=== PATIENT | female | born 1980 | race Caucasian/White ===

== ENCOUNTER 2019-05-08 20:43 | Emergency (ER) | payer OTHER, SELFPAY ==
--- NOTE | ~2019-05-08 | CT_ITS ---
EXAMINATION: CT abdomen pelvis w con EXAM DATE: 05/09/2019 00:30 INDICATION: Right lower quadrant pain. Symptoms 2 days. Nausea. TECHNIQUE: Spiral CT of the abdomen and pelvis was performed following intravenous injection of 100 m L Omnipaque 350. Axial, coronal and sagittal images were reviewed. The dose-length product (DLP) fo r this examination was 808.69 mGy-cm. The exposure was tailored according to patient size (auto mA e xposure control), and iterative reconstruction (ASIR) was used as additional dose reduction technique . There is no prior study for comparison. FINDINGS: The liver, spleen, adrenal glands and pancreas are unremarkable. Gallbladder is unremarkab le. No biliary obstruction. Portal and splenic veins are patent. Kidneys enhance symmetrically. T here is no hydronephrosis. The uterus and ovaries are unremarkable, no adnexal mass. The bladder i s unremarkable. There is no retroperitoneal or pelvic lymphadenopathy. The appendix is normal. The stomach and small bowel are unremarkable. There is expected amount of c olonic stool. No free intraperitoneal gas. The heart is normal in size. There are no pericardial or pleural effusions. The lung bases are unremarkable. The bones are unremarkable. IMPRESSION: 1. No acute intra-abdominal findings. Reviewed, dictated and finalized at location [facility]. 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
[2019-05-08 20:59] VITALS: BP 164/98; PULSE 108; RESP 21; TEMP 37; O2SAT 100
[2019-05-08 21:15] LABS: Basophils Absolute Auto 0.1 K/mm3 (0.0-0.1); Basophils Percent Auto 0.7 % (0.2-1.2); Eosinophils Absolute Auto 0.4 K/mm3 (0-0.3); Eosinophils Percent Auto 3.5 % (0-4.4); Hematocrit 38.8 % (37.0-47.0); Hemoglobin 12.7 g/dL (12.0-15.0); Immature Granulocyte Absolute 0.02 K/mm3 (0.00-0.031); Immature Granulocyte Percent A 0.2 % (0-0.5); Lymphocytes Absolute Auto 3.45 K/mm3 (0.9-3.2); Lymphocytes Percent Auto 32.6 % (18.3-44.2); Mean Corpuscular HGB Conc 32.7 g/dl (32-36); Mean Corpuscular Hemoglobin 28.2 pg (26-34); Monocytes Absolute Auto 0.6 K/mm3 (0.1-0.6); Monocytes Percent Auto 5.2 % (2.6-8.5); Neutrophils Absolute Auto 6.1 K/mm3 (1.3-6.7); Neutrophils Percent Auto 57.8 % (45.5-73.1); Platelet Count Result 289 k/mm3 (150-375); Red Blood Count 4.51 M/mm3 (4.2-5.4); Red Cell Distribution Width 14.5 % (11.5-14.5); White Blood Count 10.6 K/mm3 (4.5-10.0)
[2019-05-08 21:29] LABS: Alanine Aminotransferase 15 U/L (4-35); Albumin Level 4.1 g/dL (3.5-5.1); Alkaline Phosphatase 80 U/L (38-126); Aspartate Amino Transferase 18 U/L (14-36); Bilirubin,Total 0.2 mg/dL (0.2-1.3); Blood Urea Nitrogen 10 mg/dL (7-17); Calcium 8.9 mg/dL (8.4-10.2); Carbon Dioxide 23 mmol/L (22-30); Chloride 100 mmol/L (98-107); Estimated CRCL calculation 133 ml/min; Estimated Glomerular Filt Rate > 60; Glucose 186 mg/dL (65-105); Lipase 191 U/L (23-300); Potassium 3.8 mmol/L (3.4-5.0); Sodium 135 mmol/L (137-145)
[2019-05-08 22:07] LABS: Add Urine Microscopic? YES; Appearance Urine Clear (Clear); Bacteria Urine Trace /hpf; Bilirubin Urine Negative (Negative); Blood Urine 2+ (Negative); Color Urine Yellow (Yellow); Glucose Urine UA Negative (Negative); Ketones Urine Negative (Negative); Leukocyte Esterase Ur Negative LEU/UL (Negative); Mucus Urine Few /lpf; Nitrate Urine Negative (Negative); Protein Urine Negative (Negative); RBC Urine 0-2 /hpf (0-2); Specific Grav Ur 1.021 (1.001-1.035); Squamous Epithelial Cell Urine Few /hpf (Few); Urobilinogen Urine Negative mg/dL (<2.0); WBC Urine 0-3 /hpf
--- NOTE | 2019-05-08 23:11 | ED.ABDPAIN ---
HPI - Abdominal Pain General Chief Complaint: Abdominal Pain Stated Complaint: ABD PAIN Time Seen by Provider: 05/08/19 23:10 Source: patient and RN notes reviewed Mode of arrival: ambulatory Limitations: no limitations History of Present Illness HPI narrative: A 38 y/o female presents to the ED with constant, worsening, diffuse ABD pain beginning 2 days ago. She states that the pain is most severe on the rt side. She reports associated nausea. She notes that she just started her period 3 dyas ago. She denies any fevers, chills, vomiting, diarrhea, SOB, or CP. MD elicited complaint: abdominal pain Pertinent past history: none Onset (ago): day(s) (2) Pain Consistency: constant and other (worsening) Location: diffuse and other (worse on rt side) Associated symptoms: nausea Related Data Allergies Allergy/AdvReac Type Severity Reaction Status Date / Time No Known Allergies Allergy Verified 05/09/19 00:17 Review of Systems Review of Systems: All systems reviewed & are unremarkable except as noted in HPI and below Constitutional: Constitutional: Denies chills and Denies fever(s) Cardiovascular: Cardiovascular: Denies chest pain Respiratory: Respiratory: Denies dyspnea Gastrointestinal: Gastrointestinal: Reports abdominal pain (diffuse but worse on rt side), Denies diarrhea, Reports nausea and Denies vomiting PMFSH Past Medical History Medical History (Updated 05/09/19 @ 01:18 by Amadeo Hussein DO) Anxiety DM II (diabetes mellitus, type II), controlled GERD (gastroesophageal reflux disease) History of ovarian cyst History of pneumonia induced hypertension Sleep apnea Surgical History Surgical History (Updated 05/08/19 @ 23:15 by Herminio Karimi) History of tonsillectomy Social History Social History (Updated 05/08/19 @ 23:15 by Herminio Karimi) Smoking status: Current every day smoker Second hand tobacco smoke exposure: Yes Gender identity (if verbalized by the patient): Female Comments PCP: Dr. Rayo. Exam Narrative: Exam Narrative: APPEARANCE: No acute distress, nontoxic, resting in bed HEENT: Normocephalic, atraumatic, OMM RESPIRATORY: No respiratory distress, clear to auscultation bilaterally with no rhonchi wheezing or rales CARDIOVASCULAR: RRR s murmur ABDOMINAL: Soft, nondistended, diffusely tender to palpation, no rebound or guarding MUSCULOSKELETAl: Moves all extremities. No clubbing, cyanosis or edema. NEURO: Awake and alert. Following commands, speech normal, no focal deficits SKIN:: Warm, dry. Normal Color PSYCHIATRIC: Normal affect/mood Course Course Emergency Course: Patient states pain began at the same time her menstrual cycle began. Patient states that she has stopped having any vaginal bleeding today. Denies any vaginal discharge Patient states that they are feeling better at this time. . Repeat abdominal exam shows the patient's abdomen to be soft with no surgical abdomen present. Discussed with patient results of workup and diagnosis. Discussed need for follow-up with primary care physician, reasons to return to the emergency department in proper use of medication. Patient understands and agrees to current treatment plan Vital Signs Vital signs: Vital Signs Temperature 98.6 F 05/08/19 20:59 Pulse Rate 108 H 05/08/19 20:59 Respiratory Rate 21 H 05/08/19 20:59 Blood Pressure 164/98 H 05/08/19 20:59 Pulse Oximetry 100 05/08/19 20:59 Temperature 97.1 F L 05/09/19 00:20 Pulse Rate 101 H 05/09/19 00:20 Respiratory Rate 14 05/09/19 00:20 Blood Pressure 151/95 H 05/09/19 00:20 Pulse Oximetry 99 05/09/19 00:20 MDM - Abdominal Pain MDM Narrative Medical decision making narrative: Patient's abdomen is soft without significant pain or signs of surgical abdomen on serial exams. Lab and x-ray evaluations are reviewed and patient is felt to be a reasonable candidate for outpatient management. Patient was instructed as to limitations of x-ray and lab
[2019-05-09 00:20] VITALS: BP 151/95; PULSE 101; RESP 14; TEMP 36.2; O2SAT 99
[2019-05-09] MEDS: LACTATED RINGERS 1,000 ML 999 ML IV CONT (00:20)
[2019-05-09] MEDS: KETOROLAC 30 MG/ML VIAL (*BKC) IV PUSH (00:20)
--- NOTE | 2019-05-09 00:22 | PC.NURSE ---
Patient to radiology.
[2019-05-09 00:50] VITALS: TEMP 36
[2019-05-09 02:04] VITALS: BP 130/84; BP 147/99; PULSE 79; PULSE 86; RESP 16; RESP 18; TEMP 36; O2SAT 97; O2SAT 99
== END 2019-05-09 02:07 | disposition home or self-care (01) ==
PROVIDERS: Emergency Medicine; Emergency Provider Emergency Medicine; PCP Family Medicine
DX: R10.9 Unspecified abdominal pain (principal); E11.9 Type 2 diabetes mellitus without complications; K21.9 Gastro-esophageal reflux disease without esophagitis; G47.30 Sleep apnea, unspecified
CPT/HCPCS: 36415; 74177; 80053; 81001; 81025; 83690; 85025; 96361; 96374; 99284; J1885; J7120; Q9967

== ENCOUNTER 2019-06-03 07:39 | Outpatient (CLI) | payer OTHER, SELFPAY ==
--- NOTE | 2019-06-03 07:43 | ECG_ITS ---
Measurements Intervals [place] Rate: 91 P: 36 MO: 162 QRS: 37 QRSD: 93 T: -4 QT: 344 QTc: 425 Interpretive Statements SINUS RHYTHM MINIMAL Q WAVES- INFERIOR LEADS BORDERLINE ST-T WAVE ABNORMALITY- ANTEROLATERAL LEADS BASELINE ARTIFACT- I, II, AVR, AVL, AVF, V3 BORDERLINE ECG Electronically Signed On 06-03-2019 8:20:47 PROFESSOR [employer] by Alejandro Floyd D.O.
== END 2019-06-03 07:40 | disposition home or self-care (01) ==
LOC: ANHSURGERY 07:43
PROVIDERS: PCP Family Medicine; Visit Provider Obstetrics & Gynecology
DX: Z01.810 Encounter for preprocedural cardiovascular examination (principal); E11.9 Type 2 diabetes mellitus without complications
CPT/HCPCS: 93005

== ENCOUNTER 2019-06-11 00:46 | Day surgery (SDC) | payer OTHER, SELFPAY ==
[2019-06-02 14:22] VITALS: BMI 31.4
[2019-06-11] VITALS (7 sets, daily range): BP systolic 120–135; BP diastolic 65–87; PULSE 75–88; RESP 16–18; TEMP 36.5–36.7; O2SAT 93–98
--- NOTE | 2019-06-11 07:51 | P.HP_ITS ---
H&P: HPI History of Present Illness Chief complaint: Irregular Period, Pelvic Pain Narrative: Edna Ojeda is a 39 year old female with >6 month hx heavy bleed/clots every 2 weeks. Also with RLQ pain intermittently, not related to cycles. US performed and enlarged, globular uterus noted though no specific a natomic abN. Also having pain evaluated by urology, may see surgery as well. Denies specific GI/ complaints. Review of Systems Review of Systems: All systems reviewed & are unremarkable except as noted in HPI and below PMFSH Past Medical History Medical History Anxiety DM II (diabetes mellitus, type II), controlled GERD (gastroesophageal reflux disease) History of ovarian cyst History of pneumonia induced hypertension Sleep apnea Surgical History Surgical History History of tonsillectomy Social History Social History Smoking status: Current every day smoker Second hand tobacco smoke exposure: Yes Gender identity (if verbalized by the patient): Female Meds Home Medications and Allergies Home Medications Medication Instructions Recorded Confirmed Type ergocalciferol (vitamin D2) 50,000 unit PO WEEKLY 06/02/19 06/02/19 History metformin 500 mg PO BID 06/02/19 06/02/19 History Allergies Allergy/AdvReac Type Severity Reaction Status Date / Time No Known Allergies Allergy Verified 06/02/19 14:23 Exam Const: General: no acute distress Resp: Auscultation: clear to auscultation bilaterally Cardio: Rate: regular rate Rhythm: regular rhythm GI: GI Palp: Yes Soft to palpation : External Female Exam: normal external appearance Other: uterus enlarged 10-12 week size, right adnexa non-enlarged, tender Assessment and Plan Assessment and plan (1) Right lower quadrant abdominal pain: Code(s): R10.31 - Right lower quadrant pain Status: Acute Assessment and Plan: laparoscopy (2) Menometrorrhagia: Code(s): N92.1 - Excessive and frequent menstruation with irregular cycle Status: Acute Assessment and Plan: hysteroscope/curettage
[2019-06-11] MEDS: LACTATED RINGERS 1,000 ML 30 ML IV CONT ×2 (10:45→13:02)
[2019-06-11 10:55] LABS: Glucose Point of Care 126 (65-105)
[2019-06-11] MEDS: MIDAZOLAM HCL 2 MG/2 ML VIAL IV PUSH (11:20)
--- NOTE | 2019-06-11 11:31 | P.PNAN_ITS ---
Anes - Initial Pre Proc Eval Procedure: Operation Date: 06/11/19 12:00 Proposed Procedures p Hysteroscopy, Dilation and Curettage, Diagnostic Laparoscopy with Possible Lysis of Adhesions - Frankie Giraldo MD Date/Time: 06/11/19 11:31 Surgeon: Frankie Giraldo MD Pre Op Diagnosis: Irregular Period, Pelvic Pain Patient Data Age: 39 Gender: F Height: 1.63 m Weight: 84 kg Last Vital Signs Temp 36.5 C 06/11/19 10:45 Pulse 85 06/11/19 10:45 Resp 18 06/11/19 10:45 BP 132/87 06/11/19 10:45 Pulse Ox 98 06/11/19 10:45 Allergies Allergy/AdvReac Type Severity Reaction Status Date / Time No Known Allergies Allergy Verified 06/11/19 10:58 Home Medications Medication Instructions Recorded Confirmed Type ergocalciferol (vitamin D2) 50,000 unit PO WEEKLY 06/02/19 06/11/19 History metformin 500 mg PO BID 06/02/19 06/11/19 History Laboratory Tests 06/11/19 10:49 POC Capillary Glucose 126 mg/dl H mg/dl (65-105) Patient hx anesthesia problems: none Family hx anesthesia problems: none [facility] Past Medical History Medical History (Updated 06/11/19 @ 11:30 by Robert Garcia DO) Anxiety DM II (diabetes mellitus, type II), controlled GERD (gastroesophageal reflux disease) History of ovarian cyst History of pneumonia induced hypertension Surgical History Surgical History History of tonsillectomy Social History Social History Smoking status: Current every day smoker Second hand tobacco smoke exposure: Yes Gender identity (if verbalized by the patient): Female Anes - Eval Final PreProcedure Day of Procedure 06/11/19 11:31 Patient weight: obese Heart: regular rate and rhythm Lungs: clear to auscultation and normal air movement Airway: Mallampati scale class III Neurological: alert and oriented Last oral intake: >/= 8 hours ASA classification: III Emergent: no Anesthetic plan: proceed Anesthesia type and monitoring: general ETT and standard monitoring Informed Consent: The patient's anesthetic plan and its attendant risks and benefits were discussed with the patient/family/POA. Questions were solicited and answers provided to the satisfaction of the patient/family/POA.
[2019-06-11] MEDS: KETOROLAC 30 MG/ML VIAL (*BKC) IV PUSH (12:51)
--- NOTE | 2019-06-11 13:15 | P.OPB_ITS ---
Procedure Note - Brief Procedure Note - Brief Date of procedure: 06/11/19 Pre-op diagnosis: Irregular Period, Pelvic Pain Post-op diagnosis: same Procedure performed: hysteroscope with curettage laparoscopy Description of procedure: Patient was prepped and draped in the usual sterile manner for this procedure. Cervix was dilated and the hysteroscope to be placed with evaluation of the endometrium which did reveal thickened tissue but no specific polyps or fibroids. Curettings were obtained without difficulty. Attention was then placed to the abdomen and umbilical incision was made and the trocars placed under direct visualization suprapubic incision also placed under direct visualization. Patient was placed in Trendelenburg position and evaluated throughout the pelvis. Both tubes and ovaries without abnormality uterus itself was more enlarged and globular though no specific fibroids were noted. Appendix was evaluated did not appear to be abnormal. No evidence of endometriosis and/or adhesions. If this point the procedure was considered terminated gas was allowed to escape consistent approximated using 4 0 Monocryl a subcuticular manner. Patient was sent to recovery room in stable condition. Anesthesia: GLMA Surgeon: Frankie Giraldo MD Estimated blood loss (mL): 0 Drains: No Packing: No Pathology: yes (endometrium) Complications: No immediate complications Condition: stable Disposition: PACU Findings: hysteroscope with thickened endometrium laparoscope with enlarged uterus, no evidence of adhe sions/endometriosis...appendix without evidence of abN.
[2019-06-11 13:26] LABS: Glucose Point of Care 151 (65-105)
== END 2019-06-11 14:45 | disposition home or self-care (01) ==
PROVIDERS: PCP Family Medicine; Visit Provider Obstetrics & Gynecology
PROC: 0UDB8ZZ Extraction of Endometrium, Via Natural or Artificial Opening Endoscopic (ICD-10-PCS; CPT 58558; principal; 2019-06-11 12:00)
DX: N92.1 Excessive and frequent menstruation with irregular cycle (principal); R10.2 Pelvic and perineal pain; N85.2 Hypertrophy of uterus; R10.31 Right lower quadrant pain; E11.9 Type 2 diabetes mellitus without complications; K21.9 Gastro-esophageal reflux disease without esophagitis; G47.30 Sleep apnea, unspecified; Z79.84 Long term (current) use of oral hypoglycemic drugs; E66.9 Obesity, unspecified; Z68.31 Body mass index [BMI] 31.0-31.9, adult; F17.210 Nicotine dependence, cigarettes, uncomplicated
CPT/HCPCS: 58558; 49320; 88305; A9270; J0330; J1100; J1885; J2250; J2405; J2704; J2710; J3010; J7030; J7120

== ENCOUNTER → 2020-07-24 08:10 | Outpatient (CLI) | payer OTHER, SELFPAY ==
--- NOTE | ~2020-07-24 | US_ITS ---
US right upper quadrant DATE: 07/24/2020 09:18 INDICATION: Right upper quadrant abdominal pain TECHNIQUE: Real-time imaging and Doppler analysis of liver, pancreas, gallbladder COMPARISON: 05/09/2019 CT abdomen pelvis FINDINGS: No hepatic or pancreatic space-occupying mass lesion is evident. Normal hepatopedal portal venous flow direction. No gallstones or gallbladder wall thickening or pericholecystic abnormal fluid collection. Negative sonographic Ng's sign. The common bile duct measures 3.3 mm, normal. IMPRESSION: Negative examination Reviewed, dictated and finalized at [facility]. Reviewed, dictated and finalized at location [facility]. IMPRESSION: Negative examination
== END ==
PROVIDERS: Visit Provider Physician Assistant
DX: R10.11 Right upper quadrant pain (principal)
CPT/HCPCS: 76705

== ENCOUNTER 2020-07-24 08:38 | Outpatient (CLI) | payer OTHER, SELFPAY ==
--- NOTE | ~2020-07-24 | MM_ITS ---
EXAMINATION: MM screening grant BI w regi HISTORY: Screening mammogram TECHNIQUE: Craniocaudal and mediolateral oblique 3-D tomosynthesis images were obtained and synthetic 2-D images were generated. CAD analysis was submitted and interpreted. COMPARISON: No prior mammogram is available for comparison at this institution. BREAST PARENCHYMAL COMPOSITION: There are scattered areas of fibroglandular density. FINDINGS: There is no evidence of suspicious mass, calcification, or architectural distortion to sugg est malignancy in either breast. There has been no suspicious interval change. IMPRESSION: 1. No mammographic evidence of malignancy. 2. Recommend routine screening mammography in one year. BI-RADS Category 1: Negative Reviewed, dictated and finalized at location [facility].
== END 2020-07-24 08:39 | disposition home or self-care (01) ==
PROVIDERS: Visit Provider Physician Assistant
DX: Z12.31 Encounter for screening mammogram for malignant neoplasm of breast (principal)
CPT/HCPCS: 77063; 77067

== ENCOUNTER 2020-08-06 18:47 | Emergency (ER) | payer OTHER, SELFPAY ==
[2020-08-06 19:08] VITALS: BP 139/87; PULSE 102; RESP 20; TEMP 37.4; O2SAT 99
--- NOTE | 2020-08-06 19:20 | ED.URI ---
HPI - URI/Sore Throat General Chief Complaint: Upper Respiratory Infection Stated Complaint: sore throat Time Seen by Provider: 08/06/20 19:20 Source: patient Mode of arrival: ambulatory Limitations: no limitations History of Present Illness HPI Narrative: Edna Ojeda is a 40-year-old female with diabetes who started with a sore throat that started this morning and her glands were also swollen she woke. Blood sugars been off for the last 3 days, varying from 225 - 290. She has been afebrile but a little hoarse and generally uncomfortable. Patient has actually been symptomatically 24 hours Related Data Home Medications Medication Instructions Recorded Confirmed ergocalciferol (vitamin D2) 50,000 unit PO WEEKLY 06/02/19 06/11/19 dulaglutide [Trulicity] mg SUBCUT 08/06/20 Allergies Allergy/AdvReac Type Severity Reaction Status Date / Time No Known Allergies Allergy Verified 06/11/19 10:58 Review of Systems Review of Systems: Narrative: CONSTITUTIONAL: Denies fever, chills, sweats. EYES: Denies visual changes, redness, discharge. ENT: Denies rhinorrhea, congestion, has sore throat, otalgia. Mild hoarseness, enlarged lymph nodes CARDIOVASCULAR: Denies chest pain, palpitations, edema. RESPIRATORY: Denies dyspnea, wheezing, cough GASTROINTESTINAL: Denies abdominal pain, nausea, vomiting, diarrhea. GENITOURINARY: Denies dysuria, hematuria, abnormal discharge SKIN: Denies rash or itching. NEUROLOGIC: Denies numbness, or focal weakness. PSYCHIATRIC: Denies anxiety or depression. [facility] Past Medical History Medical History Anxiety DM II (diabetes mellitus, type II), controlled GERD (gastroesophageal reflux disease) History of ovarian cyst History of pneumonia induced hypertension Surgical History Surgical History History of tonsillectomy Family History Family History (Updated 08/06/20 @ 19:31 by Tameka Lundy CNP) Other Diabetes mellitus Heart disease Social History Social History (Updated 08/06/20 @ 19:32 by Tameka Lundy CNP) Smoking packs per day: 0.75 Smoking cigarettes per day: 15.0 Smoking status: Current every day smoker Second hand tobacco smoke exposure: Yes Alcohol intake: never Gender identity (if verbalized by the patient): Female Comments At time of signature, I agree with nursing past medical, surgical, social and family history. There is no relevant family history pertinent to the presenting complaint. Exam Narrative: Exam Narrative: GENERAL: This is a well-nourished, well-developed patient, in mild distress. Patient is anxious HEAD: normocephalic, atraumatic. EYES: Sclera clear/white. Vision is grossly intact. EARS: External ears normal, auditory canals erythematous and without drainage, TMs bulging without perforation. Hearing grossly intact. NOSE: External nose normal without nasal discharge, nares without redness, no rhinorrhea. THROAT: Mucous membranes moist, posterior pharynx erythema with enlarged submandibular lymph nodes that are tender to palpate NECK: Neck supple, tender CARDIOVASCULAR: Regular rate and rhythm without murmurs, gallops, or rubs. RESPIRATORY: Clear to auscultation. Breath sounds equal bilaterally. No wheezes, rales, or rhonchi. GASTROINTESTINAL: Abdomen soft, SKIN: warm, intact with no suspicious lesions or rash, good texture and turgor. NEURO: awake, alert, and oriented to person, place and time. There were no obvious focal neurologic abnormalities. Steady gait EXTREMITIES: Normal range of motion. BACK: Nontender without deformity Course Course Emergency Course: Patient is a 40-year-old diabetic who [facility] with complaints of sore throat, swollen lymph node, sugars that are now within normal ranges Tested for Covid rapid test was negative PCR has been sent off; strep rapid neg, sent for ortiz
[2020-08-07 19:15] LABS: SARS-CoV-2 RNA PCR Negative
== END 2020-08-06 19:51 | disposition home or self-care (01) ==
PROVIDERS: Emergency Provider Nurse Practitioner
DX: J02.9 Acute pharyngitis, unspecified (principal); Z20.822 Contact with and (suspected) exposure to COVID-19; F17.210 Nicotine dependence, cigarettes, uncomplicated; E11.9 Type 2 diabetes mellitus without complications; K21.9 Gastro-esophageal reflux disease without esophagitis
CPT/HCPCS: 87081; 87426; 87880; 99213; C9803; G0463; U0003; U0005

== ENCOUNTER 2020-10-26 16:48 | Emergency (ER) | payer OTHER, SELFPAY ==
--- NOTE | 2020-10-26 16:54 | ED.EAR ---
HPI - Ear Problem General Chief complaint: Ear Stated complaint: Headache, Ear pain Source: patient and RN notes reviewed Mode of arrival: ambulatory History of Present Illness HPI Narrative: This is a 40-year-old female who presented to urgent care with complaints of headache, ear pressure, head pressure, swollen glands and a sore throat positional dizziness. According to patient Sunday she developed the symptoms take anything at home to relieve it. Patient did note that she has had a sinus infection in the past. The patient denies SOB, CP, palpitation, extremity numbness, lightheadedness, dizziness, constipation, diarrhea, chills, or fever. Covid test negative MD Complaint: ear pain Location: bilateral Related Data Home Medications Medication Instructions Recorded Confirmed dulaglutide [Trulicity] 1.5 mg SUBCUT WEEKLY 08/06/20 10/26/20 Allergies Allergy/AdvReac Type Severity Reaction Status Date / Time No Known Allergies Allergy Verified 10/26/20 17:01 Review of Systems Review of Systems: Narrative: A 14 organ system Review of Systems was performed and pertinent positives included in the HPI, otherwise remaining ROS is negative. All systems reviewed & are unremarkable except as noted in HPI and below PMFSH Past Medical History Medical History Anxiety DM II (diabetes mellitus, type II), controlled GERD (gastroesophageal reflux disease) History of ovarian cyst History of pneumonia induced hypertension Surgical History Surgical History History of tonsillectomy Family History Family History (Updated 08/06/20 @ 19:31 by Tameka Lundy CNP) Other Diabetes mellitus Heart disease Social History Social History (Updated 08/06/20 @ 19:32 by Tameka Lundy CNP) Smoking packs per day: 0.75 Smoking cigarettes per day: 15.0 Smoking status: Current every day smoker Second hand tobacco smoke exposure: Yes Alcohol intake: never Gender identity (if verbalized by the patient): Female Exam Narrative: Exam Narrative: GENERAL: This is a well-nourished, well-developed patient, in no apparent distress. HEAD: normocephalic, atraumatic. maxillary tenderness EYES: PERRL. Sclera clear/white. Vision is grossly intact. EARS: External ears normal, auditory canals clear and without drainage, TMs with erythematous hearing grossly intact. NOSE: External nose normal with no obvious nasal discharge, nares without redness, no rhinorrhea. THROAT: Mucous membranes moist, posterior pharynx clear. NECK: Neck supple, non-tender without lymphadenopathy, masses or thyromegaly. CARDIOVASCULAR: Regular rate and rhythm without murmurs, gallops, or rubs. RESPIRATORY: Clear to auscultation. Breath sounds equal bilaterally. No wheezes, rales, or rhonchi. GASTROINTESTINAL: Abdomen soft, non-tender, nondistended. Bowel sounds are active. No hepato-splenomegaly, or palpable masses. No guarding. SKIN: warm, intact with no suspicious lesions or rash, good texture and turgor. NEURO: awake, alert, and oriented to person, place and time. There were no obvious focal neurologic abnormalities. Steady gait EXTREMITIES: Normal range of motion. No edema. No calf tenderness. Negative Homans sign bilaterally. BACK: Nontender without deformity or crepitance. No flank tenderness. Course Vital Signs Vital signs: Vital Signs Temperature 97.7 F 10/26/20 17:10 Pulse Rate 100 10/26/20 17:10 Respiratory Rate 16 10/26/20 17:10 Blood Pressure 141/81 H 10/26/20 17:10 Pulse Oximetry 100 10/26/20 17:10 Temperature 97.7 F 10/26/20 17:10 Pulse Rate 100 10/26/20 17:10 Respiratory Rate 16 10/26/20 17:10 Blood Pressure 141/81 H 10/26/20 17:10 Pulse Oximetry 100 10/26/20 17:10 Medical Decision Making Differential Diagnosis Differential Diagnosis: sinusitis, otitis media Vital Signs Vital Signs
[2020-10-26 17:10] VITALS: BP 141/81; PULSE 100; RESP 16; TEMP 36.5; O2SAT 100
== END 2020-10-26 17:53 | disposition home or self-care (01) ==
PROVIDERS: Emergency Provider Nurse Practitioner; PCP Physician Assistant
DX: J01.00 Acute maxillary sinusitis, unspecified (principal); H66.90 Otitis media, unspecified, unspecified ear; Z20.822 Contact with and (suspected) exposure to COVID-19; F17.210 Nicotine dependence, cigarettes, uncomplicated; F41.9 Anxiety disorder, unspecified; E11.9 Type 2 diabetes mellitus without complications; K21.9 Gastro-esophageal reflux disease without esophagitis
CPT/HCPCS: 87426; 99213; C9803; G0463

== ENCOUNTER 2020-12-14 10:12 | Emergency (ER) | payer OTHER, SELFPAY ==
[2020-12-14 10:37] VITALS: BP 117/83; PULSE 93; RESP 16; TEMP 36.6; O2SAT 100
[2020-12-14] MEDS: MECLIZINE HCL 25 MG TABLET PO (11:33)
--- NOTE | 2020-12-14 12:01 | ED.NAVMDI ---
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 Patient states she has a shorter, 1 morning history upon awakening of positional vertigo symptoms are mild, worse with movement or activity. This is associated with nausea without vomiting, and her blood sugars have been in the 110s. No fever, headache, URI?sinusitis, vomiting, hearing changes, lateralizing weakness, speech/visual changes,CP, loss of taste/smell, S OB, FMH M?ni?re's . No - recently completed her menstrual cycle; symptoms are mild to moderate, like she is drunk and spinning . Patient advised go to hospital for higher level testing if not improved Related Data Home Medications Medication Instructions Recorded Confirmed dulaglutide [Trulicity] 1.5 mg SUBCUT WEEKLY 08/06/20 12/14/20 Allergies Allergy/AdvReac Type Severity Reaction Status Date / Time No Known Allergies Allergy Verified 12/14/20 10:44 Review of Systems Review of Systems: General/Constitutional: No weight loss,fever Eyes: N0: Redness,discharge Ears/Nose/Throat: No: Epistaxis,ear discharge Respiratory: Denies: Hemoptysis Gastrointestinal: No Vomiting, Bleeding-rectal Skin: No Lumps, eruption Neurologic: No Focal Weakness,Sz Hematologic: Denies: Petechiae/Purpura Psychiatric: No: Suicida ideationl All Other Systems: Reviewed and Negative [facility] Past Medical History Medical History Anxiety DM II (diabetes mellitus, type II), controlled GERD (gastroesophageal reflux disease) History of ovarian cyst History of pneumonia induced hypertension Surgical History Surgical History History of tonsillectomy Family History Family History (Updated 08/06/20 @ 19:31 by Tameka Lundy CNP) Other Diabetes mellitus Heart disease Social History Social History (Updated 08/06/20 @ 19:32 by Tameka Lundy CNP) Smoking packs per day: 0.75 Smoking cigarettes per day: 15.0 Smoking status: Current every day smoker Second hand tobacco smoke exposure: Yes Alcohol intake: never Gender identity (if verbalized by the patient): Female Comments At time of signature, agree with nursing past medical, surgical, social and family history. There is no relevant family history pertinent to the presenting complaint Exam Narrative: General Appearance: Well appearing, No distress EYE: PERRLA, Conjunctiva clear,, EOMI no nystagmus seen Neurological: A&O x3, CN II-X intact, no pronator drift, normal FTN, HTS Ears: External ear normal Nose: Normal nose Mouth/Throat: Normal appearing, Normal lips, Supple Respiratory: Airway patent, No respiratory distress Cardiovascular: RRR Abdomen: Soft, Non-tender Musculoskeletal: Full ROM, and strength without drift Skin: Warm, Dry Psychiatric: Normal mood, Normal affect Course Vital Signs Vital signs: Vital Signs Temperature 97.9 F 12/14/20 10:37 Pulse Rate 93 12/14/20 10:37 Respiratory Rate 16 12/14/20 10:37 Blood Pressure 117/83 12/14/20 10:37 Pulse Oximetry 100 12/14/20 10:37 Temperature 97.9 F 12/14/20 10:37 Pulse Rate 93 12/14/20 10:37 Respiratory Rate 16 12/14/20 10:37 Blood Pressure 117/83 12/14/20 10:37 Pulse Oximetry 100 12/14/20 10:37 Discharge Plan Discharge Clinical Impression: Positional vertigo Patient Disposition: Home, Self-Care Condition: Stable Instructions: Benign Paroxysmal Positional Vertigo (ED) Additional Instructions: Go to hospital if not improved for further testing [blood for anemia, metabolic; scanning, etc.] Prescriptions: New meclizine 25 mg tablet 12.5 - 25 mg PO TID PRN (Reaso
== END 2020-12-14 11:42 | disposition home or self-care (01) ==
PROVIDERS: Emergency Provider Emergency Medicine; PCP Physician Assistant
DX: R42 Dizziness and giddiness (principal); F17.210 Nicotine dependence, cigarettes, uncomplicated; E11.9 Type 2 diabetes mellitus without complications; K21.9 Gastro-esophageal reflux disease without esophagitis
CPT/HCPCS: 99213; A9270; G0463

== ENCOUNTER 2021-02-04 16:36 | Emergency (ER) | payer OTHER, SELFPAY ==
[2021-02-04] VITALS (11 sets, daily range): BP systolic 130–156; BP diastolic 67–99; PULSE 70–110; RESP 12–22; TEMP 36.7–36.8; O2SAT 96–100
--- NOTE | ~2021-02-04 | XR_ITS ---
EXAMINATION: XR chest 2V 02/04/2021 17:48 INDICATION: Right chest pain PROCEDURE: 2 view chest COMPARISON: Comparison to multiple prior studies sequentially, with oldest reviewed study dated 05/2006. FINDINGS: The lungs are clear. The cardiomediastinal silhouette is within normal limits. There are no pleural effusions. There is no pneumothorax suspected. IMPRESSION: 1: NO ACUTE CARDIOPULMONARY DISEASE. Reviewed, dictated and finalized at location A.
--- NOTE | ~2021-02-04 | CT_ITS ---
EXAMINATION: CT abdomen pelvis wo con DATE: 02/04/2021 20:43 INDICATION: Right flank pain TECHNIQUE: Computed tomography (CT) of the abdomen and pelvis was performed without intravenous contr ast. The dose-length product was 672.77 mGy-cm. Automated exposure control and iterative reconstructi on technique were employed. COMPARISON: CT dated 05/09/2019. FINDINGS: Lung bases are unremarkable. Heart size is normal. No significant pleural or pericardial ef fusion. No significant vascular abnormality. No lymphadenopathy. Nonobstructive bowel gas pattern. No evidence for appendicitis. No free air or free fluid. The liver, spleen, pancreas, adrenal glands an d kidneys are unremarkable. Gallbladder is present. No evidence for hernia. No acute osseous abnormal ity. IMPRESSION: 1. No acute abdominal abnormality. Reviewed, dictated and finalized at location A.
--- NOTE | 2021-02-04 16:47 | ECG_ITS ---
Measurements Intervals [place] Rate: 100 P: 39 DC: 155 QRS: 30 QRSD: 89 T: 0 QT: 335 QTc: 433 Interpretive Statements SINUS TACHYCARDIA MINIMAL Q WAVES- INFERIOR ELADS NONSPECIFIC ST & T-WAVE ABNORMALITY- ANT/INF LEADS BORDERLINE ECG Electronically Signed On 02-04-2021 16:53:26 CDT by Alejandro Floyd D.O.
[2021-02-04 17:07] LABS: Basophils Absolute Auto 0.1 K/mm3 (0.0-0.1); Basophils Percent Auto 0.8 % (0.2-1.2); Eosinophils Absolute Auto 0.3 K/mm3 (0-0.3); Eosinophils Percent Auto 2.9 % (0-4.4); Hematocrit 44.4 % (37.0-47.0); Hemoglobin 14.6 g/dL (12.0-15.0); Immature Granulocyte Absolute 0.03 K/mm3 (0.00-0.031); Immature Granulocyte Percent A 0.3 % (0-0.5); Lymphocytes Absolute Auto 2.74 K/mm3 (0.9-3.2); Mean Corpuscular HGB Conc 32.9 g/dl (32-36); Mean Corpuscular Hemoglobin 28.9 pg (26-34); Mean Corpuscular Volume 87.7 fl (80-100); Mean Platelet Volume 9.8 fl (7.4-10.4); Monocytes Absolute Auto 0.6 K/mm3 (0.1-0.6); Monocytes Percent Auto 6.4 % (2.6-8.5); Neutrophils Absolute Auto 5.4 K/mm3 (1.3-6.7); Neutrophils Percent Auto 59.6 % (45.5-73.1); Platelet Count Result 260 k/mm3 (150-375); Red Blood Count 5.06 M/mm3 (4.2-5.4); White Blood Count 9.1 K/mm3 (4.5-10.0)
[2021-02-04 17:16] LABS: Anion Gap 8 mmol/L (8-16); Blood Urea Nitrogen 12 mg/dL (7-17); Calcium 9.1 mg/dL (8.4-10.2); Carbon Dioxide 29 mmol/L (22-30); Chloride 103 mmol/L (98-107); Estimated Glomerular Filt Rate > 60; Glucose 240 mg/dL (65-110); INR 0.9; Potassium 3.7 mmol/L (3.4-5.0); Prothrombin Time 12.3 Seconds (11.1-14.7); Sodium 140 mmol/L (137-145)
[2021-02-04 17:17] LABS: Partial Thromboplastin Time 29.9 SECONDS (22.3-36.8)
[2021-02-04 17:28] LABS: Troponin I < 0.012 ng/mL (0.000-0.034)
--- NOTE | 2021-02-04 19:54 | ED.GENADULT ---
HPI - General Adult General Chief complaint: Chest Pain Stated complaint: chest pain x 4 days on right side Time Seen by Provider: 02/04/21 19:03 History of Present Illness HPI narrative: Patient is a 40-year-old female who reports chronic history of right upper quadrant pain with multiple evaluations for gallbladder. Reports that pain has changed over the last 4 to 5 days. Is radiating into her back and shoulder on the right side. Has occasional nausea but no vomiting. No diarrhea or constipation. No exertional chest discomfort. No difficulty breathing/cough/congestion/fever. Has not tried any pain medication at home. Related Data Home Medications Medication Instructions Recorded Confirmed dulaglutide [Trulicity] 1.5 mg SUBCUT WEEKLY 08/06/20 12/14/20 Allergies Allergy/AdvReac Type Severity Reaction Status Date / Time No Known Allergies Allergy Verified 02/04/21 19:00 Review of Systems Review of Systems: All systems reviewed & are unremarkable except as noted in HPI and below Constitutional: Constitutional: Denies chills, Denies fever(s) and Denies weakness ENT: Denies nasal congestion and Denies sore throat Cardiovascular: Cardiovascular: Denies chest pain, Denies rapid heart rate and Denies radiating jaw, neck or arm pain Respiratory: Respiratory: Denies cough, Denies dyspnea and Denies wheezing Gastrointestinal: Gastrointestinal: Reports abdominal pain, Denies constipation, Denies heartburn, Denies diarrhea, Reports nausea and Denies vomiting Genitourinary: Genitourinary: Denies hematuria, Denies nocturia, Denies dysuria and Reports flank pain Musculoskeletal: Musculoskeletal: Reports back pain and Denies muscle cramps Neurologic: Denies focal weakness and Denies numbness PMFSH Past Medical History Medical History Anxiety DM II (diabetes mellitus, type II), controlled GERD (gastroesophageal reflux disease) History of ovarian cyst History of pneumonia induced hypertension Surgical History Surgical History History of tonsillectomy Family History Family History (Updated 08/06/20 @ 19:31 by Tameka Lundy CNP) Other Diabetes mellitus Heart disease Social History Social History (Updated 08/06/20 @ 19:32 by Tameka Lundy CNP) Smoking packs per day: 0.75 Smoking cigarettes per day: 15.0 Smoking status: Current every day smoker Second hand tobacco smoke exposure: Yes Alcohol intake: never Gender identity (if verbalized by the patient): Female Exam Narrative: GENERAL: Well-appearing, well-nourished, and in no acute distress. HEAD: Normocephalic, atraumatic. EYES: PERRL and EOMI. CHEST: Clear to auscultation. No respiratory distress. HEART: Regular rate and rhythm. Normal peripheral pulses. ABDOMEN: Soft, nontender, nondistended. Right-sided CVA tenderness when compared to left. EXTREMITIES: Normal range of motion. No edema. SKIN: Warm, dry, no rash. NEURO: Alert and oriented x3. PSYCH: Normal mood and affect. Course Course Emergency Course: Unremarkable evaluation. Patient informed results. Discharge home. She has follow-up with GI scheduled. Vital Signs Vital signs: Vital Signs Temperature 98.3 F 02/04/21 18:08 Pulse Rate 100 02/04/21 18:08 Respiratory Rate 18 02/04/21 18:08 Blood Pressure 143/67 H 02/04/21 18:08 Pulse Oximetry 99 02/04/21 18:08 Temperature 98.0 F 02/04/21 21:00 Pulse Rate 100 02/04/21 21:00 Respiratory Rate 18 02/04/21 21:00 Blood Pressure 156/92 H 02/04/21 21:00 Pulse Oximetry 97 02/04/21 21:00 Medical Decision Making Vital Signs Vital Signs: Vital Signs Temperature 98.3 F 02/04/21 18:08 Pulse Rate 100 02/04/21 18:08 Respiratory Rate 18 02/04/21 18:08 Blood Pressure 143/67 H 02/04/21 18:08 Pulse Oximetry 99 02/04/21 18:08 Temperature 98.0 F
[2021-02-04 19:55] LABS: Alanine Aminotransferase 17 U/L (4-35); Albumin Level 4.1 g/dL (3.5-5.1); Alkaline Phosphatase 85 U/L (38-126); Aspartate Amino Transferase 17 U/L (14-36); Bilirubin,Total 0.1 mg/dL (0.2-1.3); Lipase 228 U/L (23-300)
[2021-02-04 20:01] LABS: Add Urine Microscopic? YES; Appearance Urine Clear (Clear); Bacteria Urine Trace /hpf; Bilirubin Urine Negative (Negative); Blood Urine 2+ (Negative); Color Urine Yellow (Yellow); Glucose Urine UA Negative (Negative); Ketones Urine Negative (Negative); Leukocyte Esterase Ur Negative LEU/UL (Negative); Mucus Urine Rare /lpf; Nitrate Urine Negative (Negative); Protein Urine Negative (Negative); Specific Grav Ur 1.026 (1.001-1.035); Squamous Epithelial Cell Urine Occasional /hpf (Few); WBC Urine 0-3 /hpf
[2021-02-04 20:07] LABS: Troponin I < 0.012 ng/mL (0.000-0.034)
[2021-02-04] MEDS: KETOROLAC 30 MG/ML VIAL (*BKC) IV PUSH (20:26)
== END 2021-02-04 22:01 | disposition home or self-care (01) ==
PROVIDERS: Emergency Medicine; Emergency Provider Emergency Medicine; PCP Physician Assistant
DX: R10.11 Right upper quadrant pain (principal); E11.9 Type 2 diabetes mellitus without complications; K21.9 Gastro-esophageal reflux disease without esophagitis; Z87.01 Personal history of pneumonia (recurrent); F17.210 Nicotine dependence, cigarettes, uncomplicated; R00.0 Tachycardia, unspecified; R94.31 Abnormal electrocardiogram [ECG] [EKG]; Z79.899 Other long term (current) drug therapy
CPT/HCPCS: 36415; 71046; 74176; 80048; 80076; 81001; 81025; 83690; 84484; 85025; 85610; 85730; 93005; 96374; 99284; J1885

== ENCOUNTER 2021-02-22 10:08 | Emergency (ER) | payer OTHER, SELFPAY ==
[2021-02-22 11:00] VITALS: BP 136/90; PULSE 102; RESP 20; TEMP 37.3; O2SAT 98
--- NOTE | 2021-02-22 11:57 | ED.URI ---
HPI - URI/Sore Throat General Chief Complaint: Upper Respiratory Infection Stated Complaint: Sore Throat,Fever,Body Aches,Fatigue Source: patient Mode of arrival: ambulatory Limitations: no limitations History of Present Illness HPI Narrative: Patient is a 40-year-old female who presents with a sore throat, fever and fatigue x1 day. Patient reports a history of mono. Patient reports Covid vaccinated x2. Denies known exposure to Covid. Patient reports taking [id number] medications with limited relief. MD elicited complaint: fever and sore throat Related Data Home Medications Medication Instructions Recorded Confirmed dulaglutide [Trulicity] 1.5 mg SUBCUT WEEKLY 08/06/20 02/22/21 Allergies Allergy/AdvReac Type Severity Reaction Status Date / Time No Known Allergies Allergy Verified 02/22/21 11:15 Review of Systems Review of Systems: CONSTITUTIONAL: Reports fever and chills. EYES: Denies visual changes, redness, or discharge. ENT: Reports sore throat CARDIOVASCULAR: Denies chest pain, palpitations, or edema. RESPIRATORY: Denies cough or dyspnea. GASTROINTESTINAL: Denies abdominal pain, nausea, vomiting, or diarrhea. GENITOURINARY: Denies dysuria or hematuria. SKIN: Denies rash or itching. MUSCULOSKELETAL: Denies back pain, joint pain, or myalgia. NEUROLOGIC: Denies headache, numbness, dizziness, or weakness. PSYCHIATRIC: Denies anxiety or depression. [facility] Past Medical History Medical History Anxiety DM II (diabetes mellitus, type II), controlled GERD (gastroesophageal reflux disease) History of ovarian cyst History of pneumonia induced hypertension Surgical History Surgical History History of tonsillectomy Family History Family History Other Diabetes mellitus Heart disease Social History Social History Smoking packs per day: 0.75 Smoking cigarettes per day: 15.0 Smoking status: Current every day smoker Second hand tobacco smoke exposure: Yes Alcohol intake: never Gender identity (if verbalized by the patient): Female Comments At the time of signature, I have reviewed and agree with nursing past medical, surgical, social, and family history unless otherwise noted. Please see nursing chart for further information. There is no relevant family history pertinent to the presenting complaint. Exam Narrative: GENERAL: Well-appearing, well-nourished, and in no acute distress. HEAD: Normocephalic, atraumatic. EYES: EOMI. No redness or drainage. Conjunctiva are normal. ENT: Mucous membranes pink and moist. Nares clear. No rhinorrhea. TMs normal bilaterally. Throat with moderate erythema and edema. Uvula midline. NECK: AROM. Supple. Positive cervical lymphadenopathy. CHEST: No respiratory distress. HEART: Regular rate and rhythm. EXTREMITIES: Normal range of motion. No edema. SKIN: Warm, dry, no rash. NEURO: No focal deficits. Alert and oriented x3. Gait steady. PSYCH: Normal affect. No signs of depression or anxiety. Course Vital Signs Vital signs: Vital Signs Temperature 37.3 C 02/22/21 11:00 Pulse Rate 102 H 02/22/21 11:00 Respiratory Rate 20 02/22/21 11:00 Blood Pressure 136/90 02/22/21 11:00 Pulse Oximetry 98 02/22/21 11:00 Temperature 37.3 C 02/22/21 11:00 Pulse Rate 102 H 02/22/21 11:00 Respiratory Rate 20 02/22/21 11:00 Blood Pressure 136/90 02/22/21 11:00 Pulse Oximetry 98 02/22/21 11:00 Reviewed-patient is informed that they may have pre-hypertension or hypertension based on a blood pressure reading. I recommend the patient call the primary care provider listed on their discharge instructions or a physician of their choice this week to arrange follow-up for further evaluation of possible pre-hyp
[2021-02-23 18:47] LABS: SARS-CoV-2 RNA PCR Negative
== END 2021-02-22 12:22 | disposition home or self-care (01) ==
PROVIDERS: Emergency Provider Nurse Practitioner; PCP Physician Assistant
DX: J06.9 Acute upper respiratory infection, unspecified (principal); J02.9 Acute pharyngitis, unspecified; Z20.822 Contact with and (suspected) exposure to COVID-19; F17.210 Nicotine dependence, cigarettes, uncomplicated; E11.9 Type 2 diabetes mellitus without complications; K21.9 Gastro-esophageal reflux disease without esophagitis
CPT/HCPCS: 36416; 86308; 87081; 87426; 87804; 87880; 99213; C9803; G0463; U0003; U0005

== ENCOUNTER 2021-04-18 13:07 | Emergency (ER) | payer OTHER, SELFPAY ==
[2021-04-18 13:18] VITALS: BP 150/91; PULSE 107; RESP 18; TEMP 36.6; O2SAT 98
--- NOTE | 2021-04-18 13:29 | ED.GENADULT ---
HPI - General Adult General Chief complaint: Upper Respiratory Infection Stated complaint: Fever,Headache Source: patient Mode of arrival: ambulatory Limitations: no limitations History of Present Illness HPI narrative: 40 y/o female. PMHx DM II. Presents to ED today with acute complaints of MORALES, nasal congestion, and subjective fevers at home for the past 48 hours. She reports to have been exposed to a family friend, as well as a co-worker whom were Covid positive in the past 1 week. No focal weakness, LOC. No nuchal rigidity. No cough, chest pain, dyspnea, palpitations, edema. She denies GI upset. Client reports some relief with OTC remedies. She is without additional acute c/o illness upon PE. Related Data Allergies Allergy/AdvReac Type Severity Reaction Status Date / Time No Known Allergies Allergy Verified 04/18/21 13:17 Review of Systems Review of Systems: CONSTITUTIONAL: fever, chills. No sweats. Positive MORALES. EYES: Denies visual changes, redness, discharge. ENT: Positive rhinorrhea, congestion. No sore throat, otalgia. CARDIOVASCULAR: Denies chest pain, palpitations, edema. RESPIRATORY: Denies dyspnea, wheezing, cough GASTROINTESTINAL: Denies abdominal pain, nausea, vomiting, diarrhea. GENITOURINARY: Denies dysuria, hematuria, abnormal discharge SKIN: Denies rash or itching. MUSCULOSKELETAL: Denies acute back pain, joint pain, or myalgia. NEUROLOGIC: Denies numbness, or focal weakness. PSYCHIATRIC: Denies anxiety or depression. All systems reviewed & are unremarkable except as noted in HPI and below PMFSH Past Medical History Medical History Anxiety DM II (diabetes mellitus, type II), controlled GERD (gastroesophageal reflux disease) History of ovarian cyst History of pneumonia induced hypertension Surgical History Surgical History History of tonsillectomy Family History Family History Other Diabetes mellitus Heart disease Social History Social History Smoking packs per day: 0.75 Smoking cigarettes per day: 15.0 Smoking status: Current every day smoker Second hand tobacco smoke exposure: Yes Alcohol intake: never Gender identity (if verbalized by the patient): Female Exam Narrative: GENERAL: This is a well-nourished, well-developed adult, in no apparent distress. HEAD: normocephalic, atraumatic. EYES: PERRL. Sclera clear/white. EARS: External ears normal, auditory canals clear and without drainage, TMs normal. NOSE: External nose normal. Positive Rhinorrhea, no obstruction, nares patent. THROAT: Mucous membranes moist, posterior pharynx erythematous. No exudates. NECK: Neck supple, non-tender without lymphadenopathy, masses or thyromegaly. No rigidity, full and unrestricted ROM. CARDIOVASCULAR: Regular rate and rhythm without murmurs, gallops, or rubs. RESPIRATORY: Clear to auscultation. Breath sounds equal bilaterally. No wheezes, rales, or rhonchi. GASTROINTESTINAL: Abdomen soft, non-tender, nondistended. Bowel sounds are active. No guarding. SKIN: warm, intact with no suspicious lesions or rash, good texture and turgor. NEURO: Alert, active, and age appropriate. No focal neurologic deficits. EXTREMITIES: Negative. Course Course Level of Care: Express Care Visit Vital Signs Vital signs: Vital Signs Temperature 36.6 C 04/18/21 13:18 Pulse Rate 107 H 04/18/21 13:18 Respiratory Rate 18 04/18/21 13:18 Blood Pressure 150/91 H 04/18/21 13:18 Pulse Oximetry 98 04/18/21 13:18 Temperature 36.6 C 04/18/21 13:18 Pulse Rate 107 H 04/18/21 13:18 Respiratory Rate 18 04/18/21 13:18 Blood Pressure 150/91 H 04/18/21 13:18 Pulse Oximetry 98 04/18/21 13:18 The patient has been informed that they may have p
[2021-04-19 21:02] LABS: SARS-CoV-2 RNA PCR Positive
== END 2021-04-18 13:32 | disposition home or self-care (01) ==
PROVIDERS: Emergency Provider Nurse Practitioner Adult Health; PCP Physician Assistant
DX: B34.9 Viral infection, unspecified (principal); Z20.822 Contact with and (suspected) exposure to COVID-19; F17.210 Nicotine dependence, cigarettes, uncomplicated; E11.9 Type 2 diabetes mellitus without complications; K21.9 Gastro-esophageal reflux disease without esophagitis
CPT/HCPCS: 99213; C9803; G0463; U0003; U0005

== ENCOUNTER 2021-06-28 07:01 | Outpatient (CLI) | payer OTHER, SELFPAY ==
[2021-06-28 07:57] LABS: Basophils Absolute Auto 0.1 K/mm3 (0.0-0.1); Eosinophils Absolute Auto 0.3 K/mm3 (0-0.3); Eosinophils Percent Auto 3.5 % (0-4.4); Hemoglobin 13.7 g/dL (12.0-15.0); Immature Granulocyte Absolute 0.02 K/mm3 (0.00-0.031); Immature Granulocyte Percent A 0.2 % (0-0.5); Lymphocytes Absolute Auto 1.94 K/mm3 (0.9-3.2); Lymphocytes Percent Auto 23.1 % (18.3-44.2); Mean Corpuscular HGB Conc 32.6 g/dl (32-36); Mean Corpuscular Hemoglobin 27.1 pg (26-34); Mean Platelet Volume 9.6 fl (7.4-10.4); Monocytes Absolute Auto 0.5 K/mm3 (0.1-0.6); Monocytes Percent Auto 6.4 % (2.6-8.5); Neutrophils Absolute Auto 5.5 K/mm3 (1.3-6.7); Neutrophils Percent Auto 65.8 % (45.5-73.1); Platelet Count Result 274 k/mm3 (150-375); Red Blood Count 5.06 M/mm3 (4.2-5.4); Red Cell Distribution Width 14.6 % (11.5-14.5); White Blood Count 8.4 K/mm3 (4.5-10.0)
[2021-06-28 08:09] LABS: Alanine Aminotransferase 14 U/L (4-35); Albumin Level 4.1 g/dL (3.5-5.1); Alkaline Phosphatase 68 U/L (38-126); Anion Gap 5 mmol/L (8-16); Aspartate Amino Transferase 20 U/L (14-36); Bilirubin,Total 0.2 mg/dL (0.2-1.3); Blood Urea Nitrogen 15 mg/dL (7-17); Calcium 8.4 mg/dL (8.4-10.2); Carbon Dioxide 26 mmol/L (22-30); Chloride 106 mmol/L (98-107); Cholesterol 202 mg/dL (0-200); Estimated Glomerular Filt Rate > 60; Glucose 141 mg/dL (65-110); HDL Direct 32 mg/dL; Sodium 137 mmol/L (137-145); Triglycerides 102 mg/dL (<150)
[2021-06-28 08:20] LABS: LDL Cholesterol Direct 135 mg/dL
[2021-06-28 08:21] LABS: Creatinine Urine 167.4 mg/dL
[2021-06-28 08:25] LABS: MALB Creatinine Ratio 6.6 mg/g (0-30); Microalbumin Urine Random 11.1 mg/L (0-16.7)
[2021-06-28 08:29] LABS: Hemoglobin A1C 6.8 % (<5.7)
== END 2021-06-28 07:02 | disposition home or self-care (01) ==
PROVIDERS: PCP Physician Assistant; Visit Provider Physician Assistant
DX: E11.9 Type 2 diabetes mellitus without complications (principal); R53.83 Other fatigue
CPT/HCPCS: 36415; 80053; 80061; 82043; 83036; 84443; 85025

== ENCOUNTER 2021-08-10 16:38 | Emergency (ER) | payer OTHER, SELFPAY ==
--- NOTE | 2021-08-10 16:41 | ED.UPPEXIN ---
HPI - Extremity Injury (Upper) General Chief Complaint: Extremity Injury, Upper Stated Complaint: rt hand injury Time Seen by Provider: 08/10/21 16:41 Source: patient Mode of arrival: ambulatory Limitations: no limitations History of Present Illness HPI narrative: Mrs. Ojeda is a 41-year-old female patient presenting to the clinic today with complaints of right hand pain/injury that occurred yesterday morning while walking her dog. She reports that her dog saw the neighbor dog and lunged at the dog and the leash was wrapped around her wrist and this pulled her wrist and arm. Reports that she is having some numbness and tingling in her thumb and second and third digits as well as pain radiating up into her elbow. She reports that the pain is worse with movement of the wrist. Related Data Allergies Allergy/AdvReac Type Severity Reaction Status Date / Time No Known Allergies Allergy Verified 08/10/21 17:00 Review of Systems Review of Systems: Pertinent positives per HPI. Patient denies any fever, chills, rash, headache, visual changes, dizziness, cough, runny nose, sore throat, shortness of breath, chest pain, palpitations, nausea, vomiting, diarrhea, constipation, abdominal pain, or any urinary issues. [facility] Past Medical History Medical History Anxiety DM II (diabetes mellitus, type II), controlled GERD (gastroesophageal reflux disease) History of ovarian cyst History of pneumonia induced hypertension Surgical History Surgical History History of tonsillectomy Family History Family History Other Diabetes mellitus Heart disease Social History Social History Smoking packs per day: 0.75 Smoking cigarettes per day: 15.0 Smoking status: Current every day smoker Second hand tobacco smoke exposure: Yes Alcohol intake: never Gender identity (if verbalized by the patient): Female Comments At the time of my signature, I reviewed and agree with the nursing past medical, surgical, social, and family history. There is no relevant family history pertinent to the patient complaint. Exam Narrative: General: Well-developed, well nourished, in no apparent distress Head: Normocephalic, atraumatic. Cardio: Regular rate and rhythm, s1 and s2 normal, no murmur appreciated. Resp: Clear to auscultation bilaterally, no rhonchi, rales, wheezing or rubs. Musculoskeletal: No deformity, mild swelling over the right radial wrist ,tender to palpation over the right radial wrist, pain worse with flexion and extension as well as grasping, Tinel's sign positive with numbness and tingling to the hand and pain radiating up into the elbow from the wrist, grossly normal range of motion, muscle strength strong and equal, peripheral pulse strong, no edema, no cyanosis, normal gait and station Course Course Emergency Course: Portions of this record may have been created with voice recognition software. Level of Care: Express Care Visit Vital Signs Vital signs: Vital signs reviewed MDM - Extremity Injury (Upper) MDM Narrative Medical decision making narrative: At the time of visit patient was resting comfortably on the exam table. Reports that she has had numbness and tingling to the thumb and second and third digits that comes and goes with pain radiating up into the elbow. She has a positive Tinel's sign to the right radial wrist. I suspect that she has nerve/tendon inflammation due to strain of the right wrist. Recommend wearing a cock-up splint for 1 week and taking some anti-inflammatories. Supportive measures were discussed with patient she voiced understanding of discharge instructions and agreed with the treatment plan. Differential Diagnosis Differential diagnosis: Likely s
[2021-08-10 16:52] VITALS: BP 150/91; PULSE 95; RESP 18; TEMP 36.5; O2SAT 99
== END 2021-08-10 17:05 | disposition home or self-care (01) ==
PROVIDERS: Emergency Provider Nurse Practitioner Family; PCP Physician Assistant
DX: S63.501A Unspecified sprain of right wrist, initial encounter (principal); M77.8 Other enthesopathies, not elsewhere classified; E11.9 Type 2 diabetes mellitus without complications; F17.210 Nicotine dependence, cigarettes, uncomplicated; W22.8XXA Striking against or struck by other objects, initial encounter; Y93.K1 Activity, walking an animal
CPT/HCPCS: 99213; G0463

== ENCOUNTER 2022-06-02 17:28 | Emergency (ER) | payer SELFPAY ==
--- NOTE | 2022-06-02 17:34 | ED.URI ---
HPI - URI/Sore Throat General Chief Complaint: Upper Respiratory Infection Stated Complaint: Congestion,Bilateral Ear Irritation Time Seen by Provider: 06/02/22 17:55 Source: patient and RN notes reviewed Mode of arrival: ambulatory Limitations: no limitations History of Present Illness HPI Narrative: 42-year-old female presents with concern for 3 week history of nasal congestion, pressure, cough, bilateral ear pressure. Reports she has been trying [id number] medications without relief. MD elicited complaint: cough and nasal congestion Related Data Allergies Allergy/AdvReac Type Severity Reaction Status Date / Time No Known Allergies Allergy Verified 06/02/22 17:43 Review of Systems Review of Systems: CONSTITUTIONAL: Reports malaise. Denies chills, sweats, or fever. EYES: Denies visual changes, redness, or discharge. ENT: Reports rhinorrhea, congestion, sinus pain, otalgia CARDIOVASCULAR: Denies chest pain, palpitations, or edema. RESPIRATORY: Reports cough. Denies dyspnea. GASTROINTESTINAL: Denies abdominal pain, nausea, vomiting, diarrhea SKIN: Denies rash or itching. MUSCULOSKELETAL: Denies myalgia. NEUROLOGIC: Denies headache. All systems reviewed & are unremarkable except as noted in HPI and below PMFSH Past Medical History Medical History (Updated 06/02/22 @ 18:06 by Tova Bernal NP) Anemia Anxiety Asthma DM II (diabetes mellitus, type II), controlled Encounter for IUD insertion (05/21/06) Encounter for IUD removal (06/09/13) GERD (gastroesophageal reflux disease) Gestational diabetes History of ovarian cyst History of pneumonia Pneumonia induced hypertension Screening mammogram, encounter for Surgical History Surgical History History of dilation and curettage (06/11/19) hscope d&c/dx lscope--irregular bleeding History of laparoscopy (06/11/19) hscope d&c/dx lscope--irregular bleeding History of tonsillectomy (~1985) Family History Family History (Updated 08/30/21 @ 15:48 by PINEDA Copeland) Daughter Hypothyroidism Other Diabetes mellitus Heart disease Social History Social History Smoking packs per day: 0.75 Smoking cigarettes per day: 15.0 Smoking status: Current every day smoker Second hand tobacco smoke exposure: Yes Alcohol intake: never Gender identity (if verbalized by the patient): Female Comments At time of signature, agree with nursing past medical, surgical, social and family history. There is no relevant family history pertinent to the presenting complaint Exam Narrative: GENERAL: Nontoxic-appearing and in no acute distress. HEAD: Normocephalic EYES: PERRLA, conjunctivae clear ENT: Nares clear, turbinates edematous and erythematous, yellow discharge. Mucous membranes moist. TM pearly [place] with dull light reflex bilaterally; no tragal tenderness. Oropharynx not erythematous without lesions. Tonsils not enlarged and without exudate, no drooling, no hoarseness, no trismus, uvula midline. NECK: Supple. No lymphadenopathy CHEST: Clear to auscultation, breath sounds equal. No wheezing, rhonchi, rales, or stridor. No respiratory distress, speaks in full sentences. Cough and HEART: Regular rate and rhythm. No murmur heard. SKIN: Warm, dry, no rash. NEURO: Alert and oriented x3. PSYCH: Normal mood and affect Course Course Emergency Course: Patient is aware of diagnosis, understands and agrees to treatment plan. Anticipatory guidance given. Patient agrees to follow-up as directed and is aware of reasons to seek care at the emergency department. Portions of this record may have been created with voice recognition software Level of Care: Express Care Visit Vital Signs Vital signs: Reviewed. MDM - URI/Sore Throat MDM Narrative Medical decision making narrative: Differential diagnosis considered: Hernandez virus, strep p
[2022-06-02 18:29] VITALS: BP 152/88; PULSE 95; RESP 20; TEMP 36.6; O2SAT 100
== END 2022-06-02 18:08 | disposition home or self-care (01) ==
PROVIDERS: Emergency Provider Nurse Practitioner; PCP Physician Assistant
DX: J40 Bronchitis, not specified as acute or chronic (principal); E11.9 Type 2 diabetes mellitus without complications; K21.9 Gastro-esophageal reflux disease without esophagitis; F17.210 Nicotine dependence, cigarettes, uncomplicated
CPT/HCPCS: 99213; G0463

== ENCOUNTER 2022-12-09 12:54 | Emergency (ER) | payer SELFPAY ==
[2022-12-09 13:57] VITALS: BP 149/87; PULSE 84; RESP 18; TEMP 36.4; O2SAT 98
--- NOTE | 2022-12-09 14:40 | ED.SKABFB ---
HPI - Skin/Abscess/Foreign Bdy General Chief complaint: Skin/Abscess/Foreign Body Stated complaint: insect bite Time Seen by Provider: 12/09/22 14:32 Source: patient and RN notes reviewed Mode of arrival: ambulatory Limitations: no limitations History of Present Illness HPI narrative: Patient presents today stating she was bit on the nose by an insect 2 days ago while on a walk. Yesterday her nose started swelling and becoming very painful. States the pain has spread across her cheeks and forehead. She has tried ice, heat, Benadryl, and Prid Salve. She currently rates the tip of her nose 01/16. History of diet-controlled diabetes. Related Data Allergies Allergy/AdvReac Type Severity Reaction Status Date / Time No Known Allergies Allergy Verified 12/09/22 14:27 Review of Systems Review of Systems: CONSTITUTIONAL: Denies body aches, fever, chills, or sweats. EYES: Denies visual changes, redness, or discharge. ENT: Denies rhinorrhea, congestion, sore throat, or otalgia. CARDIOVASCULAR: Denies chest pain, palpitations, or edema. RESPIRATORY: Denies cough or dyspnea. GASTROINTESTINAL: Denies abdominal pain, nausea, vomiting, or diarrhea. GENITOURINARY: Denies dysuria or hematuria. SKIN: Denies rash, itching, or wounds.+ insect bite MUSCULOSKELETAL: Denies back pain, joint pain, or myalgia. NEUROLOGIC: Denies headache, numbness, tingling, or weakness. PSYCH: Denies depression or anxiety. [facility] Past Medical History Medical History Anemia Anxiety Asthma DM II (diabetes mellitus, type II), controlled Encounter for IUD insertion (05/21/06) Encounter for IUD removal (06/09/13) GERD (gastroesophageal reflux disease) Gestational diabetes History of ovarian cyst History of pneumonia Pneumonia induced hypertension Screening mammogram, encounter for Surgical History Surgical History History of dilation and curettage (06/11/19) hscope d&c/dx lscope--irregular bleeding History of laparoscopy (06/11/19) hscope d&c/dx lscope--irregular bleeding History of tonsillectomy (~1985) Family History Family History Daughter Hypothyroidism Other Diabetes mellitus Heart disease Social History Social History Smoking packs per day: 0.75 Smoking cigarettes per day: 15.0 Smoking status: Current every day smoker Second hand tobacco smoke exposure: Yes Alcohol intake: never Gender identity (if verbalized by the patient): Female Comments At time of signature, I have reviewed and agree with nursing past medical, surgical, social and family history unless otherwise noted. Please see nursing chart for further information. There is no relevant family history pertinent to the presenting complaint Exam Narrative: GENERAL: Well-appearing, well-nourished, and in no acute distress. HEAD: Normocephalic, atraumatic. EYES: EOMI. No redness or drainage. Conjunctivae normal. ENT: Mucous membranes pink and moist. NECK: Normal AROM. CHEST: No respiratory distress. EXTREMITIES: Normal range of motion. No edema. SKIN: Warm, dry, no rash. Capillary refill normal. Normal skin turgor. Approximately 0.5 cm x 3 mm erythematous area to the inner left nostril. Exterior nostril in tip of nose is mildly erythematous and edematous as well as tender to palpation. Face is without erythema or edema. NEURO: No focal deficits. Alert and oriented x3. Gait steady. PSYCH: Normal affect. No signs of depression or anxiety. Course Course Level of Care: Express Care Visit Vital Signs Vital signs: Vital Signs Temperature 97.5 F L 12/09/22 13:57 Pulse Rate 84 12/09/22 13:57 Respiratory Rate 18 12/09/22 13:57 Blood Pressure 149/87 H 12/09/22 13:57 Pulse Oximetry 98
== END 2022-12-09 14:49 | disposition home or self-care (01) ==
PROVIDERS: Emergency Provider Nurse Practitioner; PCP Physician Assistant
DX: J34.0 Abscess, furuncle and carbuncle of nose (principal); S00.36XA Insect bite (nonvenomous) of nose, initial encounter; W57.XXXA Bitten or stung by nonvenomous insect and other nonvenomous arthropods, initial encounter; F17.210 Nicotine dependence, cigarettes, uncomplicated; J45.909 Unspecified asthma, uncomplicated; E11.9 Type 2 diabetes mellitus without complications; K21.9 Gastro-esophageal reflux disease without esophagitis
CPT/HCPCS: 99213; G0463

== ENCOUNTER 2023-03-21 12:08 | Outpatient (CLI) | payer OTHER, SELFPAY ==
--- NOTE | ~2023-03-21 | MMUS_ITS ---
EXAMINATION: MM diagnostic grant BI w regi, US breast RT limited HISTORY: Palpable right breast abnormality TECHNIQUE: Additional 3-D tomosynthesis images of the breasts were performed and synthetic 2-D images were generated. CAD analysis was submitted and interpreted. High resolution Limited right breast ult rasound was performed. COMPARISON: 07/24/2020 BREAST PARENCHYMAL COMPOSITION: Breast composed of scattered areas of fibroglandular density FINDINGS: MAMMOGRAPHIC FINDINGS: The breasts are stable. No new masses, calcifications or architectural distortion in either breast to suggest malignancy ULTRASOUND: Limited right breast ultrasound: Normal heterogeneous echotexture without focal solid or cystic mass. IMPRESSION: 1. No evidence for malignancy in either breast. 2. Routine yearly screening mammogram and regular clinical breast examination are recommended. BI-RADS Category 1: Negative Reviewed, dictated and finalized at location [facility]. [facility] IMPRESSION: 1. No evidence for malignancy in either breast. 2. Routine yearly screening mammogram and regular clinical breast examination a re recommended. BI-RADS Category 1: Negative
== END 2023-03-21 12:09 | disposition home or self-care (01) ==
LOC: ANHIMG 12:09
PROVIDERS: PCP Physician Assistant; Visit Provider Obstetrics & Gynecology
DX: N63.15 Unspecified lump in the right breast, overlapping quadrants (principal)
CPT/HCPCS: 76642; 77062; 77066; G0279

== ENCOUNTER 2024-01-08 11:26 | Outpatient (CLI) | payer SELFPAY ==
--- NOTE | ~2024-01-08 | US_ITS ---
Pelvic ultrasound. Clinical History: Excessive and frequent menstruation Technique: Realtime transabdominal and transvaginal scanning of the pelvis was performed. Color flow Doppler and Doppler spectral analysis were performed. Findings: The uterus is anteverted. The endometrial stripe has a thickness of 14 mm. Anterior wall i ntramural fibroid measures 2.4 cm in diameter. The right ovary measures 2.0 x 2.5 x 1.9 cm. No significant right ovarian or adnexal mass is seen. The left ovary measures 3.3 x 3.0 x 2.1 cm. No significant left ovarian or adnexal mass is seen. There is no evidence of free fluid in the cul de sac. Impression: 2.4 cm uterine fibroid, as above. Reviewed, dictated and finalized at location . Impression: 2.4 cm uterine fibroid, as above.
== END 2024-01-08 11:27 | disposition home or self-care (01) ==
LOC: GOSHIMG 11:27
PROVIDERS: PCP Obstetrics & Gynecology; Visit Provider Obstetrics & Gynecology
DX: N92.1 Excessive and frequent menstruation with irregular cycle (principal); D25.9 Leiomyoma of uterus, unspecified
CPT/HCPCS: 76830; 76856

== ENCOUNTER 2024-04-30 14:03 | Emergency (ER) | payer OTHER, SELFPAY ==
[2024-04-30 14:14] VITALS: BP 150/84; PULSE 114; RESP 18; TEMP 36.8; O2SAT 98
--- NOTE | 2024-04-30 14:59 | ED_ITS ---
HPI - URI/Sore Throat General Chief Complaint: Upper Respiratory Infection Stated Complaint: fever Time Seen by Provider: 04/30/24 14:59 Source: patient Mode of arrival: ambulatory Limitations: no limitations History of Present Illness HPI Narrative: 43-year-old female presents with complaint of fatigue, body aches, chills, intermittent fever, cough, congestion, headache since yesterday. Denies nausea vomiting diarrhea. All systems reviewed and negative except as noted above. Related Data Home Medications ?Medication ?Instructions ?Recorded ?Confirmed ?Last Taken ?Type dapagliflozin propanediol 10 mg 10 mg PO DAILY 01/07/24 02/05/24 Unknown History tablet (Farxiga) metformin 1,000 mg tablet 1,000 mg PO BID 01/07/24 02/05/24 Unknown History Allergies Allergy/AdvReac Type Severity Reaction Status Date / Time No Known Allergies Allergy Verified 04/30/24 14:46 Review of Systems Review of Systems: CONSTITUTIONAL: Denies fever, chills, or sweats. Reports fatigue. EYES: Denies visual changes, redness, or discharge. ENT: Reports rhinorrhea, congestion. Denies sore throat, or otalgia. CARDIOVASCULAR: Denies chest pain, palpitations, or edema. RESPIRATORY: reports cough. dyspnea. GASTROINTESTINAL: Denies abdominal pain, nausea, vomiting, or diarrhea. GENITOURINARY: Denies dysuria or hematuria. SKIN: Denies rash or itching. MUSCULOSKELETAL: Denies back pain, joint pain . Reports myalgia. NEUROLOGIC: Denies headache, numbness, or weakness. PSYCHIATRIC: Denies anxiety or depression. All other systems reviewed are negative, except as documented in HPI. [facility] Past Medical History Medical History Anemia Anxiety Asthma DM II (diabetes mellitus, type II), controlled Encounter for IUD insertion (05/21/06) Encounter for IUD removal (06/09/13) GERD (gastroesophageal reflux disease) Gestational diabetes History of ovarian cyst History of pneumonia Pneumonia induced hypertension Screening mammogram, encounter for Surgical History Surgical History History of dilation and curettage (06/11/19) hscope d&c/dx lscope--irregular bleeding History of laparoscopy (06/11/19) hscope d&c/dx lscope--irregular bleeding History of tonsillectomy (~1985) Family History Family History Daughter Hypothyroidism Other Diabetes mellitus Heart disease Social History Social History (Updated 02/05/24 @ 08:53 by PINEDA Copeland) Smoking packs per day: 1 Smoking cigarettes per day: 20.0 Smoking status: Current every day smoker Tobacco type: cigarettes Second hand tobacco smoke exposure: Yes Alcohol intake: never Substance use: never Substance use type: does not use Do You Feel Safe in your Home?: Yes Lack of Transportation: No Lack of Food: Never True Current Housing: I Have Housing Concerned About Future Housing: No Difficulty Paying Gas/Electric Bills: No Difficulty Paying for Meds: YES Currently Unemployed: No Education: Trade/Vocational Certificate Difficulty w/ Childcare or Family Care: No Living arrangements: with family Additional living arrangements comments: Occupation/Education: occupation 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 There is no relevant family history pertinent to the presenting complaint. Exam Narrative: GENERAL: This is a well-nourished, well-developed patient, ill-appearing but in no acute distress HEAD: normocephalic, atraumatic. EYES: PERRL. Sclera clear/white. Vision is grossly intact. EARS: External ears normal, auditory canals clear and without drainage, TMs normal without perforation. Hearing grossly intact. NOSE: External nose normal with mild erythema, mild congestion, clear nasal drainage THROAT: Mucous membranes moist, erythematous without swelling or exudates NECK: Neck supple, non-tender without lymphadenopathy, masses or thyromegaly. CARDIOVASCULAR: Regular rate and rhythm without murmurs, gallops, or rubs. RESPIRATORY: Clear to auscultation. Breath sounds equal bilaterally. No wheezes, rales, or rhonchi. SKIN: warm, Dry, intact with no suspicious lesions or rash, good texture and turgor. NEURO: awake, alert, and oriented to person, place and time. There were no obvious focal neurologic abnormalities. EXTREMITIES: No joint tenderness, effusion, or edema noted. Course Course Level of Care: Express Care Visit Vital Signs Vital signs: Vital Signs Temperature 36.8 C 04/30/24 14:14 Pulse Rate 114 H 04/30/24 14:14 Respiratory Rate 18 04/30/24 14:14 Blood Pressure 150/84 H 04/30/24 14:14 Pulse Oximetry 98 04/30/24 14:14 Oxygen Delivery Room Air 04/30/24 14:14 Temperature 36.8 C 04/30/24 14:14 Pulse Rate 114 H 04/30/24 14:14 Respiratory Rate 18 04/30/24 14:14 Blood Pressure 150/84 H 04/30/24 14:14 Pulse Oximetry 98 04/30/24 14:14 Oxygen Delivery Room Air 04/30/24 14:14 reviewed MDM - URI/Sore Throat MDM Narrative Medical decision making narrative: Patient is aware of diagnosis, understands and agrees to treatment plan. Anticipatory guidance given. Patient agrees to follow-up as directed and is aware of reasons to seek care at the emergency department. Portions of this record may have been created with voice recognition software patient positive for influenza A. Well-appearing, nontoxic. Lungs clear to auscultation. Will treat with Tamiflu. Differential Diagnosis Differential diagnosis: Likely upper respiratory infection, sinusitis, viral infection and influenza Discharge Plan Discharge Clinical Impression: Influenza A Patient Disposition: Home, Self-Care Condition: Stable Instructions: Influenza (ED) Additional Instructions: your influenza test was positive today. Influenza is a virus and symptoms may last 10-14 days. Take medications as prescribed. Continue taking ools-omn-goorloh medication treat her symptoms such as DayQuil NyQuil cold and flu. Take ibuprofen every 6-8 hours as needed for pain and fever. Drink at least 64 oz water a day. Follow-up with your primary care physician if symptoms are not improving. Patient Language: Tongan Prescriptions: New oseltamivir [Tamiflu] 75 mg capsule 75 mg PO Q12H 5 Days Qty: 10 0RF benzonatate 200 mg capsule 200 mg PO TID PRN (Reason: cough) Qty: 20 0RF No Action metformin 1,000 mg tablet 1,000 mg PO BID dapagliflozin propanediol [Farxiga] 10 mg tablet 10 mg PO DAILY progesterone micronized [Prometrium] 200 mg capsule 200 mg PO QHS 90 Days Qty: 90 3RF Follow-up/Referrals: Cj,DAMASO Crowder [Primary Care Provider] - Time of Disposition: 15:08
== END 2024-04-30 15:11 | disposition home or self-care (01) ==
PROVIDERS: Emergency Provider Nurse Practitioner Family; PCP Physician Assistant
DX: J10.1 Influenza due to other identified influenza virus with other respiratory manifestations (principal); F17.210 Nicotine dependence, cigarettes, uncomplicated; J45.909 Unspecified asthma, uncomplicated; E11.9 Type 2 diabetes mellitus without complications; Z79.84 Long term (current) use of oral hypoglycemic drugs; K21.9 Gastro-esophageal reflux disease without esophagitis
CPT/HCPCS: 99213; G0463

== ENCOUNTER 2024-06-12 08:21 | Outpatient (CLI) | payer OTHER, SELFPAY ==
--- NOTE | ~2024-06-12 | MM_ITS ---
EXAMINATION: MM screening grant BI w regi HISTORY: Screening mammogram TECHNIQUE: Craniocaudal and mediolateral oblique 3-D tomosynthesis images were obtained and synthetic 2-D images were generated. CAD analysis was submitted and interpreted. COMPARISON: 03/21/2023, 07/24/2020 BREAST PARENCHYMAL COMPOSITION:Not Dense. There are scattered areas of fibroglandular density. FINDINGS: No suspicious mass, calcification, or architectural distortion are identified in either sharmin ast to suggest malignancy. There has been no suspicious interval change. IMPRESSION: No mammographic evidence of malignancy. Recommend routine screening mammography in one year. BI-RADS Category 1: Negative Reviewed, dictated and finalized at location . 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
--- OUTSIDE RECORDS SUMMARY | 2024-06-12 08:31 | XMS_ITS | Encounter Summary ---
Author Organization [facility] Healthcare Address [address] [place] [id number] Care Team Providers Care Extrusion Die Corrector Name Role Phone Lakesha Corona Primary Care Provider [phone] Reason for Visit * Reason Onset Date Comments Med Refill 2024 Encounter Details Date Type Department Care Team (Late st Contact Info) Description 2024 Telephone [facility] Medical Group Family Medicine [address] [place] [address] Lakesha Corona PA [address] [place] [address] Med Refill Social History Tobacco Use Types Packs/Day Years Used Date Smoking Tobacco: Every Day Cigarettes Smokeless Tobacco: Never Alcohol Use Standard Drinks/Week Comments Never 0 (1 standard drink = 0.6 oz pur e alcohol) AUDIT-C Answer Date Recorded Frequency of Alcohol Consumption Not on file 07/10/2023 Q2: How many drinks containi ng alcohol do you have on a typical day when you are drinking? Patient does not drink Frequency of Binge Drinking Not on file 05/2023 PHQ-2 Answer Date Recorded PHQ-2 Total Score (If total score is 3 or more points, staff should administer the PHQ-9) 0 02/20/2024 Personal Safety Answer Date Recorded Have you ever been in or are you currently in a harmful physical or emotional relationship or is someone making you feel afraid or unsafe? 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 Gender Identity Female 08/02/2020 9:09 AM CDT Sexual Orientation Straight 08/02/2020 9: 09 AM CDT documented as of this encounter Ordered Prescriptions Prescription Sig Dispense Quantity Refills Last Filled Start Date End Date dapagliflozin propanediol (FARXIGA) 10 mg tabletIndications: Type 2 diabetes mellitus without complication, without long-term current use of insulin (HCC) Take 1 tablet (10 mg total) by mouth daily 90 tablet 3 05/22/2024 05/22/2025 dapagliflozin propanediol (FARXIGA) 10 mg tabletIndications: Type 2 diabetes mellitus without complication, without long-term current use of insulin (HCC) Take 1 tablet (10 mg total) by mouth daily 90 tablet 3 05/22/2024 05/22/2024 documented in this encounter Miscellaneous Notes * Telephone Encounter - Marina Blackburn MA - 05/26/2024 2:48 PM CST Sent escript for Farxiga. Checked with [facility] today and they did receive the script. LM on patient's VM informing her of this. OLOGY ADJUNCT INSTRUCTOR * Telephone Encounter - Mohini Cardenas - 2024 2:21 PM CST Medication Question/Clarification Medication Name(s)/Dose: Farxiga What is the question or clarification needed? Patient advises that [facility] needs a new prescription for this medication. If needed, Pharmacy(s) medication(s) should be sent to: NA Additional Comments: Please contact patient to advise next steps if unable to prescribe. Patient advises that Marina usually handles these refills. Does message need to be routed? Yes-Action Needed OLOGY ADJUNCT INSTRUCTOR documented in this encounter Plan of Treatment Not on file documented as of this encounter Visit Diagnoses Diagnosis Type 2 diabetes mellitus without complication, without long-term current use of insulin (HCC)- Primary documented in this encounter Discontinued Medications Medication Sig Discontinue Reason Start Date End Da te dapagliflozin propanediol (FARXIGA) 10 mg tablet Take 1 tablet (10 mg total) by mouth daily Reorder 05/22/2024 05/22/2024 dapagliflozin propanediol (FARXIGA) 10 mg tabletIndications:Type 2 diabetes mellitus without complication, without long-term current use of insulin (HCC) Take 1 tablet (10 mg total) by mouth daily Reorder 05/22/2024 05/22/2024 documented as of this encounter Care Teams Extrusion Die Corrector Relationship Specialty Start Date End Date Lakesha Corona PA [address] [place] [address] PCP - General Internal Medicine 09/03/19 documented as of this encounter
--- OUTSIDE RECORDS SUMMARY | 2024-06-12 08:31 | XMS_ITS | Encounter Summary ---
Author Organization [facility] Healthcare Address [address] [place] [address] Care Team Providers Care Commutator V Ring Assembler Name Role Phone Lakesha Corona Primary Care Provider [phone]- [phone] Encounter Details Date Type Department Care Team (Late st Contact Info) Description 06/09/2024 Results Follow-Up [facility] Medical Group Family Medicine [address] [place] [address] Lakesha Corona PA [address] [place] [address] Social History Tobacco Use Types Packs/Day Years [...] points, staff should administer the PHQ-9) 0 05/29/2024 Personal Safety Answer Date Recorded Have you ever been in or are you currently in a harmful physical or emotional relationship or is someone making you feel afraid or unsafe? Denies 07/02/2023 Comments No Sex and Gender Information Value Date Recorded Sex Assigned at Not on file Legal Sex Female 3:47 PM ZINC ETCHER Gender Identity Female 08/02/2020 9:09 AM CDT Sexual Orientation Straight 08/02/2020 9: 09 AM CDT documented as of this encounter Plan of Treatment Not on file documented as of this encounter Visit Diagnoses Not on filedocumented in this encounter Care Teams Commutator V Ring Assembler Relationship Specialty Start Date End Date Lakesha Corona PA [address] [place] [address] PCP - General Internal Medicine 09/03/19 documented as of this encounter
--- OUTSIDE RECORDS SUMMARY | 2024-06-12 08:32 | XMS_ITS | Referral Summary ---
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 Name Role Phone Lakesha Corona Primary Care Provider [phone]- [phone] Encounters Date Type Department Care Team Description 06/09/2024 Results Follow-Up [address] [place] [phone] Lakesha Corona PA 06/09/2024 Telephone [facility] [address] [place] [address] Lakesha Corona PA 06/09/2024 Orders Only [address] [place] [address] Lakesha Corona PA Type 2 diabetes mellitus without complication, without long-term current use of insulin (HCC) (Primary Dx); Tachycardia 06/09/2024 Orders Only [facility] [address] [place] [address] Lakesha Corona PA Type 2 diabetes mellitus without complication, without long-term current use of insulin (HCC) (Primary Dx); Tachycardia; Encounter for Medicare annual wellness exam; Annual physical exam; Hyperlipidemia, unspecified hyperlipidemia type 06/03/2024 Telephone [place] [id number] [place] [address] Lakesha Corona PA 06/02/[address] [place] [phone] Lakesha Corona PA 05/29/2024 8:30 AM HARVEST CONTRACTOR Office Visit [address] [place] [phone] Lakesha Corona PA Foreign body in skin of heel (Primary Dx); BMI 29.0-29.9,adult [address] [place] [phone] Lakesha Corona PA Med Refill 05/01/[address] [place] [phone] Lakesha Corona PA 04/21/[address] [place] [phone] Lakesha Corona PA from Last 3 Months Allergies No known active allergies Medications dapagliflozin propanediol (FARXIGA) 10 mg tabletIndication s:Type 2 diabetes mellitus without complication, without long-term current use of insulin (HCC) Take 1 tablet (10 mg total) by mouth daily 90 tablet 3 5 05/22/19 26 Active metFORMIN (GLUCOPHAGE) 500 mg tabletIndication s:Type 2 diabetes mellitus without complication, without long-term current use of insulin (HCC) Take 2 tablets (1,000 mg total) by mouth 2 (two) times a day with meals 360 tablet 1 5 Active progesterone (PROMETRIUM) 200 mg capsuleIndicatio ns:Hormone imbalance Take 1 capsule (200 mg total) by mouth nightly 90 capsule 2 5 Active dapagliflozin propanediol (FARXIGA) 10 mg tablet Take 1 tablet (10 mg total) by mouth daily 30 tablet 4 05/22/19 25 Discontinu ed(Reorder ) progesterone (PROMETRIUM) 200 mg capsule TAKE 1 CAPSULE BY MOUTH EVERY DAY AT BEDTIME 4 06/03/19 Discontinu ed(Reorder ) fluconazole (DIFLUCAN) 150 mg tabletIndication s:Yeast infection Take one tab now. Repeat in 7 days if symptoms persist. 2 tablet 5 05/29/19 Discontinu ed(Therapy completed) metFORMIN (GLUCOPHAGE) 500 mg tabletIndication s:Type 2 diabetes mellitus without complication, without long-term current use of insulin (HCC) TAKE 2 TABLETS(1000 MG) BY MOUTH TWICE DAILY WITH MEALS 360 tablet 1 5 06/02/19 Discontinu ed(Reorder ) dapagliflozin propanediol (FARXIGA) 10 mg tablet Take 1 tablet (10 mg total) by mouth daily 90 tablet 3 5 05/22/19 Discontinu ed(Reorder ) dapagliflozin propanediol (FARXIGA) 10 mg tabletIndication s:Type 2 diabetes mellitus without complication, without long-term current use of insulin (HCC) Take 1 tablet (10 mg total) by mouth daily 90 tablet 3 5 05/22/19 Discontinu ed(Reorder ) Active Problems Problem Noted Date Diagnosed Date Foreign body in skin of heel 05/29/2024 Assessment & Plan (05/29/2024 9:18 AM HARVEST CONTRACTOR): Patient was able to remove the splinter from the heel last night. Has a picture and it was quite long. No s/s infection Continue to look for s/s and if occur, call for antibiotic. Discussed using mold skin for heel protection as needed. BMI 29.0-29.9,adult 02/20/2024 Assessment & Plan (05/29/2024 8:41 AM HARVEST CONTRACTOR): BMI Follow-up includes: Discussed diet and exercising counseling. Assessment & Plan (02/20/2024 10:23 PM HARVEST CONTRACTOR): Weight/BMI is in healthy range. Continue healthy lifestyle to maintain. Cigarette smoker 12/12/2022 Assessment & Plan (02/20/2024 10:22 PM HARVEST CONTRACTOR): Encouraged smoking cessation. Discussed 3 minutes. Reviewed options for assistance with cessation. Reviewed assisted sequela associated with smoking. Pt declines assistance at this time but may contact the office at anytime for further help as they desire. Assessment & Plan (12/12/2022 7:07 PM CDT): Encouraged smoking cessation. Discussed 3 minutes. Reviewed options for assistance with cessation. Reviewed assisted sequela associated with smoking. Pt declines assistance at this time but may contact the office at anytime for further help as they desire. Type 2 diabetes mellitus without complication Assessment & Plan (02/20/2024 10:23 PM HARVEST CONTRACTOR): Stressed importance of continued A1c control to minimize the assisted effects of diabetes. Bring accuchecks to office when instructed to do so. Check A1c about every 3-6 months. Take medication as prescribed. Get annual eye exam. Encouraged FAUSTINO/Statin if able to tolerate. Encouraged weight control and encouraged diabetic diet and exercise. Patient is much better controlled with an A1c now at 7.6 down from 9.2. Continue metformin 1 g b.i.d. and Farxiga 10 mg. Assessment & Plan (12/01/2023 8:44 PM CDT): Stressed importance of continued A1c control to minimize the terminal operations supervisor effects of diabetes. Bring accuchecks to office when instructed to do so. Check A1c about every 3-6 months. Take medication as prescribed. Get annual eye exam. Encouraged FAUSTINO/Statin if able to tolerate. Encouraged weight control and encouraged diabetic diet and exercise. A1c is not controlled. It has come down from 10.4 in August to now 9.6 but still needs more assistance with management. Is on metformin 1 g b.i.d.. Discussed treatment options. Decided upon Farxiga 10 mg. After reviewing risks benefits alternatives side effects and proper use of the medication choices. Samples provided. Prescription sent to pharmacy. Will see if she qualifies for patient assistance as she is self-pay Assessment & Plan (08/21/2023 5:16 PM CDT): Stressed importance of continued A1c control to minimize the terminal operations supervisor effects of diabetes. Bring accuchecks to office when instructed to do so. Check A1c about every 3-6 months. Take medication as prescribed. Get annual eye exam. Encouraged FAUSTINO/Statin if able to tolerate. Encouraged weight control and encouraged diabetic diet and exercise. Currently on metformin 500 b.i.d.. Needs an A1c to determine next step. Patient has been concerned about the cost of medication so willing to increase to 1 g b.i.d. if needed. She will order her labs from [facility] and forward them to me when they become available Assessment & Plan (07/04/2021 11:41 PM CDT): Stressed importance of continued A1c control to minimize the assisted effects of diabetes. Bring accuchecks to office when instructed to do so. Check A1c about every 3-6 months. Take medication as prescribed. Get annual eye exam. Encouraged FAUSTINO/Statin if able to tolerate. Encouraged weight control and encouraged diabetic diet and exercise. Patient continues to want to managed by diet control only. A1c currently is at 6.8. She has a continues glucose monitor. Encouraged to continue with her plan if the numbers go up will revisit utilizing medication again. At this point she also declines wanting to do a statin or an Faustino as recommended do the diagnosis. Will follow closely and continue to offer with her upcoming visits. Assessment & Plan (04/06/2021 11:21 PM HARVEST CONTRACTOR): Stressed importance of continued A1c control to minimize the assisted effects of diabetes. Bring accuchecks to office when instructed to do so. Check A1c about every 3-6 months. Take medication as prescribed. Get annual eye exam. Encouraged FAUSTINO/Statin if able to tolerate. Encouraged weight control and encouraged diabetic diet and exercise. Discussed with patient gastroparesis. Offered referral to quality assurance tech which she declined. Reviewed that diabetes itself can cause gastroparesis. There is definitely GI symptoms that can result from some of the GI medications including metformin and GLPs. Reviewed the risk of undertreated her untreated diabetes. Also reviewed risks and benefits of insulin use. Discussed SG LT risks benefits alternatives and side effects. She is interested in starting Jardiance 10 mg. Will reassess in 3 months. Assessment & Plan (09/13/2020 8:14 AM CDT): Stressed importance of continued A1c control to minimize the assisted effects of diabetes. Bring accuchecks to office when instructed to do so. Check A1c about every 3-6 months. Take medication as prescribed. Get annual eye exam. Encouraged FAUSTINO/Statin if able to tolerate. Encouraged weight control and encouraged diabetic diet and exercise. Continue Trulicity 1.5 weekly as A1c at goal. She declines Statin and FAUSTINO at this point. Will continue to discuss Assessment & Plan (08/28/2020 9:08 PM CDT): Stressed importance of continued A1c control to minimize the assisted effects of diabetes. Bring accuchecks to office when instructed to do so. Check A1c about every 3-6 months. Take medication as prescribed. Get annual eye exam. Encouraged FAUSTINO/Statin if able to tolerate. Encouraged weight control and encouraged diabetic diet and exercise. reviewed with patient that infections or other stressors will increase her A1c and sugar readings short term. Encouraged her to continue to follow diet and exercise. Will treat the infection and monitor closely and within a few weeks these readings should return back to her normal. If they do not she is to contact the office. She voiced understanding Assessment & Plan (06/06/2020 11:52 PM HARVEST CONTRACTOR): Stressed importance of continued A1c control to minimize the assisted effects of diabetes. Bring accuchecks to office when instructed to do so. Check A1c about every 3-6 months. Take medication as prescribed. Get annual eye exam. Encouraged FAUSTINO/Statin if able to tolerate. Encouraged weight control and encouraged diabetic diet and exercise. Continue Trulicity 1.5 until able to recheck A1c for change. Assessment & Plan (2020 8:58 PM HARVEST CONTRACTOR): Stressed importance of continued A1c control to minimize the assisted effects of diabetes. Bring accuchecks to office when instructed to do so. Check A1c about every 3-6 months. Take medication as prescribed. Get annual eye exam. Encouraged FAUSTINO/Statin if able to tolerate. Encouraged weight control and encouraged diabetic diet and exercise. F.u in a few weeks to check labs as just started Trulicity. Appears to be tolerating well. Assessment & Plan (04/17/2020 8:26 PM HARVEST CONTRACTOR): Stressed importance of continued A1c control to minimize the terminal operations supervisor effects of diabetes. Bring accuchecks to office when instructed to do so. Check A1c about every 3-6 months. Take medication as prescribed. Get annual eye exam. Encouraged FAUSTINO/Statin if able to tolerate. Encouraged weight control and encouraged diabetic diet and exercise. Pt stopped statin. Discussed importance and benefit of a statin in a DM. Will discuss again at next visit to avoid starting multiple meds at the same time. Start Trulicity. Reviewed risks, benefit, alternatives, side effects and proper use. Will increase in a month if able to tolerate. Continue metformin as able. Assessment & Plan (01/14/2020 10:04 AM CDT): Stressed importance of continued A1c control to minimize the terminal operations supervisor effects of diabetes. Bring accuchecks to office when instructed to do so. Check A1c about every 3-6 months. Take medication as prescribed. Get annual eye exam. Encouraged FAUSTINO/Statin if able to tolerate. Encouraged weight control and encouraged diabetic diet and exercise. Not compliant with Metformin. Stressed importance of taking medications daily. Can take TWO tabs together in the AM so he will at least get a full dose daily. If unable to achieve control, discussed GLP q week. Will readdress the statin and FAUSTINO at next visit as starting BB today Assessment & Plan (09/29/2019 9:40 PM CDT): This is a significant, separately identifiable problem that was evaluated and managed on the same day as the wellness exam Pt has been decreasing medication for the last few months while waiting to establish care. Restart metformin 500mg bid. Recheck labs. Stressed importance of continued A1c control to minimize the assisted effects of diabetes. Bring accuchecks to office when instructed to do so. Check A1c about every 3-6 months. Take medication as prescribed. Get annual eye exam. Encouraged FAUSTINO/Statin if able to tolerate. Encouraged weight control and encouraged diabetic diet and exercise. . Start statin. Will start FAUSTINO at next visit to avoid starting multiple meds in the same visit. Vitamin D deficiency 09/29/2019 Assessment & Plan (09/13/2020 8:05 AM CDT): supplement Assessment & Plan (06/06/2020 11:51 PM HARVEST CONTRACTOR): supplement Assessment & Plan (01/14/2020 9:54 AM CDT): supplement Assessment & Plan (09/29/2019 9:37 PM CDT): Supplement. Change to daily as difficult to take weekly. Tachycardia 09/29/2019 Assessment & Plan (04/17/2020 8:28 PM HARVEST CONTRACTOR): Pt didn't try the bystolic due to fears over side effects. Discussed at length. Will get her on the trulicity and then revisit. Assessment & Plan (01/14/2020 9:54 AM CDT): Probably secondary to anxiety. Discussed anxiety treatment and am going to start a beta-reilly to see if we can decrease the heart rate as well as help a little with the anxiety is she is not in favor of considering anti anxiety anti depressant. Start Bystolic 2.5 mg 1 tablet daily reviewed risks benefits alternatives and proper use. Assessment & Plan (09/29/2019 9:44 PM CDT): Decreased thru the exam. No correlating sxs when feels heart racing. Adenomyosis 09/29/2019 Assessment & Plan (04/17/2020 8:25 PM HARVEST CONTRACTOR): Continue per Dr. Levine Assessment & Plan (01/14/2020 10:03 AM CDT): Continue per SALES ADMINISTRATOR Dr. Mejia Assessment & Plan (09/29/2019 9:55 PM CDT): Continue per Dr. Giraldo. Resolved Problems Problem Noted Date Diagnosed Date Resolved Date Wound of right ankle 12/01/2023 024 Assessment & Plan (12/01/2023 8:42 PM CDT): Apply MODESTA the area. If it does not heal she is to call. Encouraged to change shoes or get some type of padding in the area Chronic cough 08/21/2023 02/20/2024 Assessment & Plan (08/21/2023 5:16 PM CDT): Patient with a persistent chronic cough. This does not seem to be respiratory. I suspect this is reflux and coming all the way up to the larynx. Strongly encouraged her to restart the omeprazole 40 mg daily. She may extend beyond the 14 days as recommended on the box. Reviewed reflux behavioral changes that need to happen. If her voice does not improve over the next 2 months will need to make the referral to ENT so that she can be scoped in have a definitive diagnosis. Respiratory infection 07/22/20232023 Assessment & Plan (07/22/2023 5:01 PM CDT): Reassured patient it appears she continues to improve and recommend that we aggressively treat with Robitussin with codeine for the cough but not add any additional medications as she has been on multiple antibiotics and steroid treatments over the last 2-3 weeks. She is to monitor very closely and if symptoms persist or worsen will need to get chest x-ray versus CT of the lungs and follow-up. She is in agreement with the plan Nausea 02/23/2023 08/21/2023 Assessment & Plan (02/23/2023 1:01 AM HARVEST CONTRACTOR): Acute onset nausea this morning. Has not really had any emesis. Family members have had GI bug. Provided Zofran. Monitor. If symptoms worsen she is to follow-up Worried well 02/23/2023 02/20/2024 Assessment & Plan (02/23/2023 1:01 AM HARVEST CONTRACTOR): Her nose looks totally normal today. Advised to monitor and if she starts to see swelling or changes she is to follow up immediately BMI 30.0-30.9,adult 12/12/2022 02/20/20 24 Assessment & Plan (11/20/2023 9:16 AM CDT): Discussed the patient's BMI. The BMI is above average. BMI management plan is completed. BMI Follow-up includes: nutrition counseling, exercise counseling and education provided. Assessment & Plan (08/21/2023 5:17 PM CDT): Discussed the patient's BMI. The BMI is above average. BMI management plan is completed. BMI Follow-up includes: nutrition counseling, exercise counseling and education provided. Assessment & Plan (02/21/2023 2:33 PM HARVEST CONTRACTOR): Discussed the patient's BMI. The BMI is above average. BMI management plan is completed. BMI Follow-up includes: nutrition counseling, exercise counseling and education provided. Assessment & Plan (12/12/2022 3:07 PM CDT): Discussed the patient's BMI. The BMI is above average. BMI management plan is completed. BMI Follow-up includes: nutrition counseling, exercise counseling and education provided. Obesity (BMI 30-39.9) 12/12/20222023 Assessment & Plan (11/20/2023 9:16 AM CDT): Discussed the patient's BMI. The BMI is above average. BMI management plan is completed. BMI Follow-up includes: nutrition counseling, exercise counseling and education provided. Assessment & Plan (08/21/2023 5:17 PM CDT): Discussed the patient's BMI. The BMI is above average. BMI management plan is completed. BMI Follow-up includes: nutrition counseling, exercise counseling and education provided. Assessment & Plan (02/21/2023 2:34 PM HARVEST CONTRACTOR): Discussed the patient's BMI. The BMI is above average. BMI management plan is completed. BMI Follow-up includes: nutrition counseling, exercise counseling and education provided. Assessment & Plan (12/12/2022 3:07 PM CDT): Discussed the patient's BMI. The BMI is above average. BMI management plan is completed. BMI Follow-up includes: nutrition counseling, exercise counseling and education provided. Nose cellulitis 12/12/2022 08/21/2023 Assessment & Plan (12/12/2022 7:07 PM CDT): Patient has cellulitis of the nose. The tip of it on the outside is red there is also a crusted lesion in the right nares. It is definitely improved with Keflex and steroid. She agrees the steroid is what made the biggest difference. She feels as though the redness is trying to come back and the discomfort is trying to come back. Will go ahead and have her stop the Keflex transition to Bactroban and Bactrim DS for MRSA coverage. She is to continue When finishing my note, I noticed that the Rx had been written for Bactrim DS take 2 tabs bid. I called and clarified with patient that she only needs 1 tab bid x 10days. She voiced understanding. Acute non-recurrent pansinusitis 01/05/2022 08/21/2023 Assessment & Plan (01/05/2022 1:42 PM CDT): Start antibiotic, antihistamine (Claritin OR Zyrtec), Mucinex 12hour and Steroid nasal spray (Flonase). Push fluids. Rest. Supportive care. If sxs worsen or don\'t improve, pt is to followup in the office. BMI 29.0-29.9,adult 07/04/2021 12/13/19 23 Assessment & Plan (07/04/2021 4:15 PM CDT): Weight/BMI is in healthy range. Continue healthy lifestyle to maintain. Annual physical exam 07/04/2021 024 Assessment & Plan (07/04/2021 11:42 PM CDT): Encouraged healthy lifestyle, good nutrition and exercise. Encouraged Calcium and Vitamin D and weight bearing exercise for bone health. Reviewed immunizations Reviewed age appropirate screenings. Breast cancer screening by mammogram 07/04/2021 08/21/2023 Assessment & Plan (07/04/2021 11:42 PM CDT): Mammogram order provided Obesity (BMI 30-39.9) 09/13/20202021 Assessment & Plan (09/13/2020 7:58 AM CDT): Obesity is improved. Discussed the patient's BMI. The BMI is above average. BMI management plan is completed. BMI Follow-up includes: nutrition counseling, exercise counseling and education provided. BMI 31.0-31.9,adult 09/13/2020 07/05/19 Assessment & Plan (09/13/2020 8:14 AM CDT): Obesity is uimproved. Discussed the patient's BMI. The BMI is above average. BMI management plan is completed. BMI Follow-up includes: nutrition counseling, exercise counseling and education provided. Abdominal pain 09/13/2020 02/20/2024 Assessment & Plan (09/13/2020 7:57 AM CDT): Discussed rescheduling HIDA vs referral to Dr. Reed. She prefers to see GI. Will start PPI to see if helps with her sxs. DM well control so less likely a gastroparesis. Gastroesophageal reflux dise ase without esophagitis 09/13/2020 02/20/2024 Assessment & Plan (08/21/2023 5:16 PM CDT): Patient with a persistent chronic cough. This does not seem to be respiratory. I suspect this is reflux and coming all the way up to the larynx. Strongly encouraged her to restart the omeprazole 40 mg daily. She may extend beyond the 14 days as recommended on the box. Reviewed reflux behavioral changes that need to happen. If her voice does not improve over the next 2 months will need to make the referral to ENT so that she can be scoped in have a definitive diagnosis. Assessment & Plan (07/04/2021 11:42 PM CDT): Controlled without medications due to dietary and behavioral changes Assessment & Plan (09/13/2020 7:58 AM CDT): Start PPI. Discussed GERD at length including anatomy, behavioral changes (raise HOB, meal timings), dietary changes and medication options. Reviewed risks, benefits alternatives, side effects and proper use. Followup if sxs worsen or has hematochezia or hematemeis. Fatigue 08/28/2020 02/20/2024 Assessment & Plan (09/13/2020 8:14 AM CDT): Probably multifactorial. Check labs and followup to re-evaluate Assessment & Plan (08/28/2020 9:09 PM CDT): Probably multifactorial. Check labs and followup to re-evaluate BMI 32.0-32.9,adult 06/03/2020 09/14/19 Assessment & Plan (06/03/2020 11:13 AM HARVEST CONTRACTOR): Obesity is unchanged. Discussed the patient's BMI. The BMI is above average. BMI management plan is completed. BMI Follow-up includes: nutrition counseling, exercise counseling and education provided. RUQ pain 2020 02/20/2024 Assessment & Plan (2020 8:55 PM HARVEST CONTRACTOR): Reviewed GB sxs, workup and treatment. Reviewed GB diet. Check RUQ US and will follow with HIDA if negative. Call if sxs worsen or don't resolve. Complaint of nasal congestion 2020 02/20/2024 Assessment & Plan (2020 8:57 PM HARVEST CONTRACTOR): COVID negative x 2 Reviewed may just be a different virus. Monitor and treat sxs. If persist, followup in the office. BMI 33.0-33.9,adult 04/13/2020 06/03/19 Assessment & Plan (04/13/2020 1:22 PM HARVEST CONTRACTOR): Obesity is unchanged. Discussed the patient's BMI. The BMI is above average. BMI management plan is completed. BMI Follow-up includes: nutrition counseling, exercise counseling and education provided. BMI 33.0-33.9,adult 01/14/2020 04/13/19 Assessment & Plan (01/14/2020 10:05 AM CDT): Obesity is unchanged. Discussed the patient's BMI. The BMI is above average. BMI management plan is completed. BMI Follow-up includes: nutrition counseling, exercise counseling and education provided. Breast cancer screening by mammogram 01/14/2020 04/17/2020 Assessment & Plan (01/14/2020 10:05 AM CDT): Order provided to do after her 40th birthday Influenza vaccine refused 01/14/2020 Assessment & Plan (01/14/2020 10:06 AM CDT): Plans to get with her child later in the month Cigarette smoker 09/29/2019 12/12/2022 Assessment & Plan (09/13/2020 8:14 AM CDT): Encouraged smoking cessation. Discussed 3 minutes. Reviewed options for assistance with cessation. 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 Pt declines assistance at this time but may contact the office at anytime for further help as they desire. Assessment & Plan (06/06/2020 11:52 PM HARVEST CONTRACTOR): Encouraged smoking cessation. Discussed 3 minutes. Reviewed options for assistance with cessation. Reviewed assisted sequela associated with smoking. Pt declines assistance at this time but may contact the office at anytime for further help as they desire. Assessment & Plan (2020 8:58 PM HARVEST CONTRACTOR): Encouraged smoking cessation. Discussed 3 minutes. Reviewed options for assistance with cessation. 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 Pt declines assistance at this time but may contact the office at anytime for further help as they desire. Assessment & Plan (04/17/2020 8:26 PM HARVEST CONTRACTOR): Encouraged smoking cessation. Discussed 3 minutes. Reviewed options for assistance with cessation. 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 Pt declines assistance at this time but may contact the office at anytime for further help as they desire. Assessment & Plan (01/14/2020 10:05 AM CDT): Encouraged smoking cessation. Discussed 3 minutes. Reviewed options for assistance with cessation. Reviewed assisted sequela associated with smoking. Pt declines assistance at this time but may contact the office at anytime for further help as they desire. Assessment & Plan (09/29/2019 9:40 PM CDT): Encouraged smoking cessation. Discussed 3 minutes. Reviewed options for assistance with cessation. Reviewed assisted sequela associated with smoking. Pt declines assistance at this time but may contact the office at anytime for further help as they desire. Obesity (BMI 30-39.9) 09/29/20192020 Assessment & Plan (06/06/2020 11:51 PM HARVEST CONTRACTOR): Obesity is unchanged. Discussed the patient's BMI. The BMI is above average. BMI management plan is completed. BMI Follow-up includes: nutrition counseling, exercise counseling and education provided. Assessment & Plan (04/17/2020 8:25 PM HARVEST CONTRACTOR): Obesity is unchanged. Discussed the patient's BMI. The BMI is above average. BMI management plan is completed. BMI Follow-up includes: nutrition counseling, exercise counseling and education provided. Assessment & Plan (01/14/2020 10:03 AM CDT): Obesity is unchanged. Discussed the patient's BMI. The BMI is above average. BMI management plan is completed. BMI Follow-up includes: nutrition counseling, exercise counseling and education provided. Assessment & Plan (09/29/2019 9:37 PM CDT): Obesity is unchanged. Discussed the patient's BMI. The BMI is above average. BMI management plan is completed. BMI Follow-up includes: nutrition counseling, exercise counseling and education provided. BMI 31.0-31.9,adult 09/29/2019 01/14/20 Assessment & Plan (09/29/2019 9:40 PM CDT): Obesity is unchanged. Discussed the patient's BMI. The BMI is above average. BMI management plan is completed. BMI Follow-up includes: nutrition counseling, exercise counseling and education provided. Other fatigue 09/29/2019 02/20/2024 Assessment & Plan (04/17/2020 8:27 PM HARVEST CONTRACTOR): Probably multifactorial. Check labs and followup to re-evaluate Assessment & Plan (09/29/2019 9:46 PM CDT): Probably multifactorial. Check labs and followup to re-evaluate Annual physical exam 09/29/2019 020 Assessment & Plan (09/29/2019 9:46 PM CDT): Encouraged healthy lifestyle, good nutrition and exercise. Encouraged Calcium and Vitamin D and weight bearing exercise for bone health. Reviewed immunizations Reviewed age appropirate screenings. AMA (advanced maternal age) multigravida 35+ 6 08/21/2023 Supervision of high risk pre gnancy in first trimester 02/22/2016 08/21/2023 Immunizations Immunization Administration Dates Next Due Influenza, Quadrivalent, Spl it, Preservative Free, Intramuscular 01/19/2017 Influenza, Unspecified 02/20/2024(Deferr ed: Patient Refused),04/09/2023(Deferred: Patient Refused),04/09/2023(Deferred: Patient Refused),04/09/2023(Deferred: Patient Refused),05/10/2022(Deferred: Patient Refused),07/04/2021(Deferred: Patient Refused),01/14/2020(Deferred: Patient Refused),01/08/2020 Tdap 09/07/2016 Social History Tobacco Use Types Packs/Day Years [...] on file Legal Sex Female 3:47 PM HARVEST CONTRACTOR Gender Identity Female 08/02/2020 9:09 AM CDT Sexual Orientation Straight 08/02/2020 9: 09 AM CDT Last Filed Vital Signs Vital Sign Reading Time Taken Comments Blood Pressure 138/84 05/29/2024 8:36 AM HARVEST CONTRACTOR Pulse 56 05/29/2024 8:36 AM HARVEST CONTRACTOR Temperature 36.8 C (98.2 F) 05/29/2024 8:36 AM HARVEST CONTRACTOR Respiratory Rate 20 07/02/2023 4:15 PM CDT Oxygen Saturation 98% 05/29/2024 8:36 AM HARVEST CONTRACTOR Inhaled Oxygen Concentration - - Weight 79 kg (174 lb 3.2 oz) 05/29/2024 8:36 AM HARVEST CONTRACTOR Height 162.6 cm (5' 4 ) 05/29/2024 8:36 AM HARVEST CONTRACTOR Body Mass Index 29.9 05/29/2024 8:36 AM HARVEST CONTRACTOR Plan of Treatment Not on file Procedures Procedure Name Priority Date/Time Associated Diagnosis Comments CBC WITH AUTO DIFFERENTIAL Routine 06/03/2024 Type 2 diabetes mellitus without complication, without long-term current use of insulin (HCC) Annual physical exam COMPREHENSIVE METABOLIC PANEL Routine 06/03/2024 Type 2 diabetes mellitus without complication, without long-term current use of insulin (HCC) Annual physical exam LIPID PANEL Routine 06/03/2024 Annual physical exam Hyperlipidemia, unspecified hyperlipidemia type HEMOGLOBIN A1C Routine 02/20/2024 11:04 AM HARVEST CONTRACTOR SCREENING MAMMOGRAM BILATERAL W BONG Schedule Routine, Read Routine (OP Routine) 03/21/2023 Breast cancer screening by mammogram from Last 3 Months or Most Recently Relevant to Health Maintenance Results * (ABNORMAL) CBC with auto differential (06/03/2024) SCRIBED WBC 9.6 3.8 - 10.8 k/cumm [facility] SCRIBED RBC 5.20(A) 3.80 - 5.10 m/cumm [facility] SCRIBED Hemoglobin 12.5 11.7 - 15.5 g/dL [facility] SCRIBED Hematocrit 41.0 35.0 - 45.0 % [facility] SCRIBED MCH 24.0(A) 27.0 - 33.0 pg [facility] SCRIBED MCHC 30.5(A) 32 - 36 g/dL [facility] SCRIBED RDW 16.4(A) 11.0 - 15.0 g/dl [facility] SCRIBED RDW SD 0 0 - 0 fL [facility] SCRIBED RDW CV 0 0 - 0 % [facility] SCRIBED Platelets 388 140 - 400 k/cumm [facility] SCRIBED MPV 9.7 7.5 - 12.5 fL [facility] SCRIBED NRBC 0 0 - 0 /100 WBC [facility] SCRIBED Lymphocytes 2,333 850 - 3,900 % [facility] SCRIB[facility] Atypical Lymphocytes 0 0 - 0 % [facility] SCRIBED Monocytes 576 200 - 950 % [facility] SCRIBED Neutrophils 6,326 1,500 - 7,800 % [facility] SCRIBED Imm Granulocytes 0 0 - 0 % [facility] SCRIBED Eosinophils 269 15 - 500 % [facility] SCRIBED Basophils 96 0 - 200 % [facility] SCRIBED NRBC Abs 0 0 - 0 K/cumm [facility] SCRIBED Lymphocytes Abs 0 0 - 0 k/cumm [facility] SCRIBED Monocytes Abs 0 0 - 0 k/cumm [facility] SCRIBED Neutrophils Abs 0 0 - 0 k/cumm [facility] SCRIBED Imm Granulocytes Abs 0 0 - 0 [facility] SCRIBED Eosinophils Abs 0 0 - 0 k/cumm [facility] SCRIBED Basophils Abs 0 0 - 0 k/cumm [facility] SCRIBED Bands 0 0 - 0 % [facility] SCRIBED Segs 0 0 - 0 % [facility] SCRIBED Total Cells Diffed 0 0 - 0 [facility] SCRIBED MCV 78.8(A) 80 - 100 fl [facility] Blood 06/03/2024 us Lakesha PETIT LAB BLOOD ORDERABLES Final Result [facility] * (ABNORMAL) Lipid panel (06/03/2024) SCRIBED Cholesterol, Total 244(A) 0 - 200 [facility] SCRIBED HDL 48(A) 50 - 100 EXTER[facility] LAB SCRIBED LDL 159(A) 0 - 100 EXTERNAL LAB SCRIBED Triglycerides 210(A) 0 - 100 EX[facility] LAB Blood 06/03/2024 Lakesha PETIT LAB BLOOD ORDERABLES Final Result EXTER[facility] * (ABNORMAL) Comprehensive metabolic panel (06/03/2024) SCRIBED Sodium 139 135 - 146 mmol/L [facility] SCRIBED Potassium 4.2 3.5 - 5.3 mmol/L [facility] SCRIBED Chloride 105 98 - 110 mmol/L [facility] SCRIBED Carbon Dioxide 26 20 - 32 mmol/L [facility] SCRIBED Anion Gap 0 0 - 0 mmol/L [facility] SCRIBED Urea Nitrogen (BUN) 13 7 - 25 mg/dl [facility] SCRIBED Creatinine 0.66 0.50 - 0.99 mg/dl [facility] SCRIBED Glucose 145(A) 65 - 99 mg/dl [facility] SCRIBED Calcium 9.2 8.6 - 10.2 mg/dl EXTER[facility] LAB SCRIBED Bilirubin 0.2 0.2 - 1.2 mg/dl EXTERNAL LAB SCRIBED Plasma Protein 6.7 6.1 - 8.1 g/dl EXTERNAL LAB SCRIBED Albumin 4.2 3.6 - 5.1 g/dl EXTER[facility] LAB SCRIBED Alkaline Phosphatase 70 31 - 125 Units/L EXTER[facility] LAB SCRIBED Alanine Transaminase (ALT) 16 6 - 29 Units/L EXTERNAL LAB SCRIBED Aspartate Transaminase (AST) 14 10 - 30 Units/L EXTERNAL LAB SCRIBED eGFR in 0 0 - 0 EXTERNAL LAB SCRIBED eGFR in NonAfrican [place] Islander 111 60 - 150 EXTERNAL LAB Blood 06/03/2024 Lakesha PETIT LAB BLOOD ORDERABLES Final Result EXTERNAL LAB * (ABNORMAL) Hemoglobin A1c (02/20/2024 11:04 AM HARVEST CONTRACTOR) SCRIBED Hemoglobin A1c 7.6(A) 0 - 5.6 % [facility] Blood us Historical Provider MD LAB BLOOD ORDERABLES Edit ed Result - Final Performing Organization Address City/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
--- OUTSIDE RECORDS SUMMARY | 2024-06-12 08:32 | XMS_ITS | Clinical Summary ---
Author Organization [facility] [id number] [facility] Address [address] [place] [address] Care Team Providers Care Web Development Manager Name Role Phone Lakesha Corona Primary Care Provider [phone] Allergies No known active allergies Medications dapagliflozin [...] MOUTH EVERY DAY AT BEDTIME 4 06/03/19 25 Discontinu ed(Reorder ) fluconazole (DIFLUCAN) 150 mg tabletIndication s:Yeast infection Take one tab now. Repeat in 7 days if symptoms persist. 2 tablet 01/13/05/29/19 25 Discontinu ed(Therapy completed) metFORMIN (GLUCOPHAGE) 500 mg tabletIndication s:Type 2 diabetes mellitus without complication, without long-term current use of insulin (HCC) TAKE 2 TABLETS(1000 MG) BY MOUTH TWICE DAILY WITH MEALS 360 tablet 1 5 06/02/19 Discontinu ed(Reorder ) dapagliflozin propanediol (FARXIGA) 10 mg tablet Take 1 tablet (10 mg total) by mouth daily 90 tablet 3 5 05/22/19 25 Discontinu ed(Reorder ) dapagliflozin propanediol (FARXIGA) 10 mg tabletIndication s:Type 2 diabetes mellitus without complication, without long-term current use of insulin (HCC) Take 1 tablet (10 mg total) by mouth daily 90 tablet 3 5 05/22/19 Discontinu ed(Reorder ) Active Problems Problem Noted Date Diagnosed Date Foreign body in skin of heel 05/29/2024 Assessment & Plan (05/29/2024 9:18 AM SOFTWARE VALIDATION TECHNICIAN): Patient was able to remove the splinter from the heel last night. Has a picture and it was quite long. No s/s infection Continue to look for s/s and if occur, call for antibiotic. Discussed using mold skin for heel protection as needed. BMI 29.0-29.9,adult 02/20/2024 Assessment & Plan (05/29/2024 8:41 AM SOFTWARE VALIDATION TECHNICIAN): BMI Follow-up includes: Discussed diet and exercising counseling. Assessment & Plan (02/20/2024 10:23 PM SOFTWARE VALIDATION TECHNICIAN): Weight/BMI is in healthy range. Continue healthy lifestyle to maintain. Cigarette smoker 12/12/2022 Assessment & Plan (02/20/2024 10:22 PM SOFTWARE VALIDATION TECHNICIAN): Encouraged smoking cessation. Discussed 3 minutes. Reviewed options for assistance with cessation. Reviewed longitudinal float operator sequela associated with smoking. Pt declines assistance at this time but may contact the office at anytime for further help as they desire. Assessment & Plan (12/12/2022 7:07 PM CDT): Encouraged smoking cessation. Discussed 3 minutes. Reviewed options for assistance with cessation. Reviewed longitudinal float operator sequela associated with smoking. Pt declines assistance at this time but may contact the office at anytime for further help as they desire. Type 2 diabetes mellitus without complication Assessment & Plan (02/20/2024 10:23 PM SOFTWARE VALIDATION TECHNICIAN): Stressed importance of continued A1c control to minimize the retirement effects of diabetes. Bring accuchecks to office [...] of continued A1c control to minimize the longitudinal float operator effects of diabetes. Bring accuchecks to office [...] of continued A1c control to minimize the longitudinal float operator effects of diabetes. Bring accuchecks to office [...] needed. She will order her labs from [facility] and forward them to me when they become available Assessment & Plan (07/04/2021 11:41 PM CDT): Stressed importance of continued A1c control to minimize the retirement effects of diabetes. Bring accuchecks to office [...] visits. Assessment & Plan (04/06/2021 11:21 PM SOFTWARE VALIDATION TECHNICIAN): Stressed importance of continued A1c control to minimize the longitudinal float operator effects of diabetes. Bring accuchecks to office when instructed to do so. Check A1c about every 3-6 months. Take medication as prescribed. Get annual eye exam. Encouraged FAUSTINO/Statin if able to tolerate. Encouraged weight control and encouraged diabetic diet and exercise. Discussed with patient gastroparesis. Offered referral to chief learning officer which she declined. Reviewed that diabetes itself [...] of continued A1c control to minimize the longitudinal float operator effects of diabetes. Bring accuchecks to office [...] of continued A1c control to minimize the retirement effects of diabetes. Bring accuchecks to office [...] understanding Assessment & Plan (06/06/2020 11:52 PM SOFTWARE VALIDATION TECHNICIAN): Stressed importance of continued A1c control to minimize the retirement effects of diabetes. Bring accuchecks to office when instructed to do so. Check A1c about every 3-6 months. Take medication as prescribed. Get annual eye exam. Encouraged FAUSTINO/Statin if able to tolerate. Encouraged weight control and encouraged diabetic diet and exercise. Continue Trulicity 1.5 until able to recheck A1c for change. Assessment & Plan (2020 8:58 PM SOFTWARE VALIDATION TECHNICIAN): Stressed importance of continued A1c control to minimize the longitudinal float operator effects of diabetes. Bring accuchecks to office [...] well. Assessment & Plan (04/17/2020 8:26 PM SOFTWARE VALIDATION TECHNICIAN): Stressed importance of continued A1c control to minimize the retirement effects of diabetes. Bring accuchecks to office [...] of continued A1c control to minimize the longitudinal float operator effects of diabetes. Bring accuchecks to office [...] of continued A1c control to minimize the longitudinal float operator effects of diabetes. Bring accuchecks to office [...] supplement Assessment & Plan (06/06/2020 11:51 PM SOFTWARE VALIDATION TECHNICIAN): supplement Assessment & Plan (01/14/2020 9:54 AM CDT): supplement Assessment & Plan (09/29/2019 9:37 PM CDT): Supplement. Change to daily as difficult to take weekly. Tachycardia 09/29/2019 Assessment & Plan (04/17/2020 8:28 PM SOFTWARE VALIDATION TECHNICIAN): Pt didn't try the bystolic due to [...] 09/29/2019 Assessment & Plan (04/17/2020 8:25 PM SOFTWARE VALIDATION TECHNICIAN): Continue per Dr. Levine Assessment & Plan (01/14/2020 10:03 AM CDT): Continue per EQUIPMENT VALIDATION SPECIALIST Dr. Mejia Assessment & Plan (09/29/2019 9:55 [...] 08/21/2023 Assessment & Plan (02/23/2023 1:01 AM SOFTWARE VALIDATION TECHNICIAN): Acute onset nausea this morning. Has not really had any emesis. Family members have had GI bug. Provided Zofran. Monitor. If symptoms worsen she is to follow-up Worried well 02/23/2023 02/20/2024 Assessment & Plan (02/23/2023 1:01 AM SOFTWARE VALIDATION TECHNICIAN): Her nose looks totally normal today. Advised [...] provided. Assessment & Plan (02/21/2023 2:33 PM SOFTWARE VALIDATION TECHNICIAN): Discussed the patient's BMI. The BMI is [...] provided. Assessment & Plan (02/21/2023 2:34 PM SOFTWARE VALIDATION TECHNICIAN): Discussed the patient's BMI. The BMI is [...] in the office. BMI 29.0-29.9,adult 07/04/2021 12/13/19 Assessment & Plan (07/04/2021 4:15 PM CDT): [...] 09/14/19 Assessment & Plan (06/03/2020 11:13 AM SOFTWARE VALIDATION TECHNICIAN): Obesity is unchanged. Discussed the patient's BMI. The BMI is above average. BMI management plan is completed. BMI Follow-up includes: nutrition counseling, exercise counseling and education provided. RUQ pain 2020 02/20/2024 Assessment & Plan (2020 8:55 PM SOFTWARE VALIDATION TECHNICIAN): Reviewed GB sxs, workup and treatment. Reviewed GB diet. Check RUQ US and will follow with [facility] if negative. Call if sxs worsen or don't resolve. Complaint of nasal congestion 2020 02/20/2024 Assessment & Plan (2020 8:57 PM SOFTWARE VALIDATION TECHNICIAN): COVID negative x 2 Reviewed may just be a different virus. Monitor and treat sxs. If persist, followup in the office. BMI 33.0-33.9,adult 04/13/2020 06/03/19 Assessment & Plan (04/13/2020 1:22 PM SOFTWARE VALIDATION TECHNICIAN): Obesity is unchanged. Discussed the patient's BMI. [...] Reviewed options for assistance with cessation. Reviewed retirement sequela associated with smoking. Pt declines assistance at this time but may contact the office at anytime for further help as they desire. Assessment & Plan (06/06/2020 11:52 PM SOFTWARE VALIDATION TECHNICIAN): Encouraged smoking cessation. Discussed 3 minutes. Reviewed options for assistance with cessation. Reviewed retirement sequela associated with smoking. Pt declines assistance at this time but may contact the office at anytime for further help as they desire. Assessment & Plan (2020 8:58 PM SOFTWARE VALIDATION TECHNICIAN): Encouraged smoking cessation. Discussed 3 minutes. Reviewed options for assistance with cessation. Reviewed retirement sequela associated with smoking. Pt declines assistance at this time but may contact the office at anytime for further help as they desire. Assessment & Plan (04/17/2020 8:26 PM SOFTWARE VALIDATION TECHNICIAN): Encouraged smoking cessation. Discussed 3 minutes. Reviewed options for assistance with cessation. Reviewed retirement sequela associated with smoking. Pt declines assistance at this time but may contact the office at anytime for further help as they desire. Assessment & Plan (01/14/2020 10:05 AM CDT): Encouraged smoking cessation. Discussed 3 minutes. Reviewed options for assistance with cessation. Reviewed retirement sequela associated with smoking. Pt declines assistance at this time but may contact the office at anytime for further help as they desire. Assessment & Plan (09/29/2019 9:40 PM CDT): Encouraged smoking cessation. Discussed 3 minutes. Reviewed options for assistance with cessation. Reviewed retirement sequela associated with smoking. Pt declines assistance at this time but may contact the office at anytime for further help as they desire. Obesity (BMI 30-39.9) 09/29/20192020 Assessment & Plan (06/06/2020 11:51 PM SOFTWARE VALIDATION TECHNICIAN): Obesity is unchanged. Discussed the patient's BMI. The BMI is above average. BMI management plan is completed. BMI Follow-up includes: nutrition counseling, exercise counseling and education provided. Assessment & Plan (04/17/2020 8:25 PM SOFTWARE VALIDATION TECHNICIAN): Obesity is unchanged. Discussed the patient's BMI. [...] and education provided. BMI 31.0-31.9,adult 09/29/2019 01/14/20 20 Assessment & Plan (09/29/2019 9:40 PM CDT): Obesity is unchanged. Discussed the patient's BMI. The BMI is above average. BMI management plan is completed. BMI Follow-up includes: nutrition counseling, exercise counseling and education provided. Other fatigue 09/29/2019 02/20/2024 Assessment & Plan (04/17/2020 8:27 PM SOFTWARE VALIDATION TECHNICIAN): Probably multifactorial. Check labs and followup to [...] pre gnancy in first trimester 02/22/2016 08/21/2023 Encounters Date Type Department Care Team Description 06/09/2024 Results Follow-Up [address] [phone] Lakesha Corona PA 06/09/[address] [phone] Lakesha Corona PA 06/09/2024 Orders Only [address] [place] [phone] Lakesha Corona PA Type 2 diabetes mellitus without complication, without long-term current use of insulin (HCC) (Primary Dx); Tachycardia 06/09/2024 Orders Only [address] [phone] Lakesha Corona PA Type 2 diabetes mellitus without complication, without long-term current use of insulin (HCC) (Primary Dx); Tachycardia; Encounter for Medicare annual wellness exam; Annual physical exam; Hyperlipidemia, unspecified hyperlipidemia type 06/03/[address] [place] [phone] Lakesha Corona PA 06/02/[address] [phone] Lakesha Corona PA 05/29/2024 8:30 AM SOFTWARE VALIDATION TECHNICIAN Office Visit [address] [place] [address] Lakesha Corona PA Foreign body in skin of heel (Primary Dx); BMI 29.0-29.9,adult [address] [place] [phone] Lakesha Corona PA Med Refill 05/01/[address] [place] [phone] Lakesha Corona PA 04/21/[address] [place] [phone] Lakesha Corona PA from Last 3 Months Immunizations Immunization Administration Dates Next Due Influenza, Quadrivalent, Spl it, Preservative Free, Intramuscular 01/19/2017 Influenza, Unspecified 02/20/2024(Deferr ed: Patient Refused),04/09/2023(Deferred: Patient Refused),04/09/2023(Deferred: Patient Refused),04/09/2023(Deferred: Patient Refused),05/10/2022(Deferred: Patient Refused),07/04/2021(Deferred: Patient Refused),01/14/2020(Deferred: Patient Refused),01/08/2020 Tdap 09/07/2016 Medical History Medical History Date Comments Diabetes mellitus (HCC) Family History Medical History Relation Name Comments Cancer Maternal Grandmother Colon cancer Maternal Grandmother Diabetes type I Maternal Great-Grandmother Cancer Mother Multiple sclerosis Mother Thyroid disease Mother Relation Name Status Comments Father Alive Maternal Grandmother Maternal Great-Grandmother Mother Alive Social History Tobacco Use Types Packs/Day Years [...] Frequency of Binge Drinking Not on file 04/0 05/2023 PHQ-2 Answer Date Recorded PHQ-2 Total [...] on file Legal Sex Female 3:47 PM SOFTWARE VALIDATION TECHNICIAN Gender Identity Female 08/02/2020 9:09 AM CDT Sexual Orientation Straight 08/02/2020 9: 09 AM CDT Obstetrics History Last Filed Vital Signs Vital Sign Reading Time Taken Comments Blood Pressure 138/84 05/29/2024 8:36 AM SOFTWARE VALIDATION TECHNICIAN Pulse 56 05/29/2024 8:36 AM SOFTWARE VALIDATION TECHNICIAN Temperature 36.8 C (98.2 F) 05/29/2024 8:36 AM SOFTWARE VALIDATION TECHNICIAN Respiratory Rate 20 07/02/2023 4:15 PM CDT Oxygen Saturation 98% 05/29/2024 8:36 AM SOFTWARE VALIDATION TECHNICIAN Inhaled Oxygen Concentration - - Weight 79 kg (174 lb 3.2 oz) 05/29/2024 8:36 AM SOFTWARE VALIDATION TECHNICIAN Height 162.6 cm (5' 4 ) 05/29/2024 8:36 AM SOFTWARE VALIDATION TECHNICIAN Body Mass Index 29.9 05/29/2024 8:36 AM SOFTWARE VALIDATION TECHNICIAN Plan of Treatment Health Maintenance Due Date Last Done Comments Albumin Creatinine Ratio, Urine 1980 Cervical Cancer Screening 1980 Hepatitis C Screening 1980 Dilated Eye Exam 1980 Varicella Vaccines (1 of 2 - 13+ 2-dose series) 1993 Hepatitis B Screening 1998 Pneumococcal vaccine <65 (1 of 2 - PCV) 1999 Foot Exam 09/28/2020 09/29/2019 Regular Well Visit/Exam 18-64 07/04/2022 07/04/2021, 09/29/2019 Covid-19 Vaccine ( - season) 2023 11/26/2020, 11/05/2020 Breast Cancer Screening-Mammogram 03/21/2024 03/21/2023, 07/24/2020 Hemoglobin A1C 08/19/2024 02/20/2024, 08/0 12/2023, 06/28/2021, Additional history exists Influenza Vaccine (#1) 2024 01/08/2020, 2016 Postponed from 12/09/2023 (Patient declined, but will receive in the future) Depression Screening 05/29/2025 05/29/2024, 02/20/2024, 11/20/2023, Additional history exists Lipid Panel 06/03/2025 06/03/2024, 06/08, 03/10/2021, Additional history exists eGFR 06/03/2025 06/03/2024, 02/07, 12/20/2023, Additional history exists DTaP/Tdap/Td Vaccine (2 - Td or Tdap) 09/07/2026 09/07/2016 HPV Vaccines Aged Out No longer eligi ble based on patient's age to complete this topic Procedures Procedure Name Priority Date/Time Associated Diagnosis [...] type HEMOGLOBIN A1C Routine 02/20/2024 11:04 AM SOFTWARE VALIDATION TECHNICIAN SCREENING MAMMOGRAM BILATERAL W BONG Schedule Routine, [...] 80 - 100 fl [facility] Blood 06/03/2024 Lakesha PETIT LAB BLOOD ORDERABLES [...] 0 EXTERNAL LAB SCRIBED eGFR in NonAfrican Syrian 111 60 - 150 EXTERNAL LAB Blood 06/03/2024 Lakesha PETIT LAB BLOOD ORDERABLES Final Result EXTERNAL LAB * (ABNORMAL) Hemoglobin A1c (02/20/2024 11:04 AM SOFTWARE VALIDATION TECHNICIAN) SCRIBED Hemoglobin A1c 7.6(A) 0 - 5.6 % [facility] Blood Historical Provider LAB BLOOD ORDERABLES Edit ed Result - Final [facility] * Screening Mammogram Bilateral W Bong (03/21/2023) Anatomical Region Laterality Modality Breast Bilateral Mammography Lakesha PETIT IMG MAMMO PROCEDURES Final Result from Last 3 Months or Most Recently Relevant to Health Maintenance Care Teams Web Development Manager Relationship Specialty Start Date End Date Lakesha Corona PA [address] [facility] [address] [place] [address] PCP - General Internal Medicine 09/03/19
--- OUTSIDE RECORDS SUMMARY | 2024-06-12 08:32 | XMS_ITS | Patient Health Summary ---
Author Organization [facility] Address [address] [place] [address] Care Team Providers Care Veneer Taping Machine Offbearer Name Role Phone Unavailable Primary Care Provider Unavailabl e Note from [facility],non-owned Affiliates and Associated Physician Practices is amultiple site organization consisting of ambulatory clinics and hospital sitesin [place], [place], [place] and [place]. This disclosure is being madepursuant to the Care Everywhere program and may not contain all information available regarding this patient. Last updated 17.[facility] Allergies No known active allergies Medications * Be aware that medications may not be up to date on this document. Alwaysverify current medications with the patient. * Vit-Fe Fumarate-FA ( VITAMIN) 28-0.8 MG tablet Take 1 Tab by mouth once daily * blood glucose (ONETOUCH ULTRA TEST STRIPS) test strip(Started 02/23/2016) For glucose monitoring 8 times per day--before and one hour after each meal and bedtime and 2 to 3 am. * insulin glulisine (APIDRA) vial(Started 02/23/2016) Take 10 units with breakfast and 10 units with dinner. 3 refills remaining * insulin NPH (HUMULIN N) vial(Started 02/23/2016) Take 20 units in the morning and 10 units at bedtime. 3 refills remaining * Insulin Syringe-Needle U-100 (BD ULTRAFINE 31 G X 6 MM 0.5 ML) 31G X 15/64 0.5 ML syringe(Started 02/23/2016) Use one syringe with each injection--for four injections per day. 3 refills remaining * glucagon (GLUCAGON EMERGENCY) injection(Started 02/23/2016) Use as directed if needed for emergency. Dispense 2 kits--one for work and one for home. 1 refill remaining * aspirin EC (ECOTRIN) 325 MG tablet Take 325 mg by mouth once daily Active Problems Problem Noted Date Diagnosed Date Supervision of high risk in first trim flor 02/22/2016 Type 2 diabetes mellitus com plicating in third trimester, antepartum 02/22/2016 AMA (advanced maternal age) multigravida 35+ Social History Tobacco Use Types Packs/Day Years Used Date Smoking Tobacco: Every Day Cigarettes 0.3 17 Tobacco Cessation:Ready to Q uit: Yes; Counseling Given: Yes Alcohol Use Standard Drinks/Week Comments No 0 (1 standard drink = 0.6 oz pur e alcohol) Sex and Gender Information Value Date Recorded Sex Assigned at Not on file Gender Identity Not on file Sexual Orientation Not on file Last Filed Vital Signs Vital Sign Reading Time Taken Comments Blood Pressure 146/82 09/06/2016 3:29 PM CDT Pulse 102 08/23/2016 3:38 PM CDT Temperature - - Respiratory Rate - - Oxygen Saturation - - Inhaled Oxygen Concentration - - Weight 98.7 kg (217 lb 9.6 oz) 09/06/2016 3:29 P M CDT Height 162.6 cm (5' 4 ) 02/23/2016 3:57 PM 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 Body Mass Index 37.35 02/23/2016 3:57 PM 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 Procedures * SONOGRAM - COMPLETE(Performed 08/23/2016) Performed for Supervision of high risk in first trimester ([facility]), Type 2 diabetes mellituscomplicating in third trimester, antepartum ([facility]) * SONOGRAM - COMPLETE(Performed 07/26/2016) Performed for Type 2 diabetes mellitus complicating in third trimester, antepartum ([facility]) * SONOGRAM - COMPLETE(Performed 06/28/2016) Performed for Type 2 diabetes mellitus affecting in second trimester, antepartum ([facility]), Supervision of high risk in first trimester ([facility]) * ECHO CONSULT - (Performed 06/20/2016) Performed for Type 2 diabetes mellitus affecting in second trimester, antepartum ([facility]) * SONOGRAM - COMPLETE(Performed 05/31/2016) Performed for Type 2 diabetes mellitus affecting in second trimester, antepartum ([facility]), Supervision of high risk in first trimester ([facility]) * SONOGRAM - COMPLETE(Performed 05/03/2016) Performed for Supervision of high risk in first trimester ([facility]), Type 2 diabetes mellitusaffecting in first trimester, antepartum (HCC), AMA (advanced maternal age) multigravida 35+, second trimester (HCC) * SONOGRAM - COMPLETE(Performed 04/05/2016) Performed for Supervision of high risk in first trimester (HCC), Type 2 diabetes mellitusaffecting in first trimester, antepartum (HCC) * SONOGRAM - COMPLETE(Performed 02/23/2016) Performed for Supervision of high risk in first trimester (HCC), Type 2 diabetes mellitusaffecting in first trimester, antepartum (HCC) Results * SONOGRAM - COMPLETE (08/23/2016 3:29 PM CDT) Only the most recent of7 resultswithin the time period is included. Anatomical Region Laterality Modality Other 08/23/2016 3:29 PM CDT Narrative 08/23/2016 4:16 PM CDT [facility] PHONE: FAX: Pat. Name: ART OJEDA Pat. No: [id number] Study Date: 08/23/2016 3:29pm , Age: 02 1980, 36 Pregnancies: 2, Para 1 Height: 64 in Weight: 200 lb LMP: 12/14/2015 GA by LMP: 36w1d GA by 1st: 36w1d GA by US: 35w2d GA Selected: 36w1d (From First S) HÉCTOR: 09/19/2016 Referring MD: Frankie Giraldo MD Parachute Accessories Attacher: Gabriela Ma RDMS BMI: 34.33 Hist/Ind: DM Growth MEASUREMENTS & AGE GROWTH EVALUATION Measurement GA Range Srce %for GA Ratios ----- ---- ------- BPD 8.7 cm 35w1d (89i9c-87n0w) Hadl BPD 37% FL/BPD 0.80 (0.71 - 0.87) HC 31.1 cm 34w6d (24n3l-51l5d) Hadl HC 30% FL/AC 0.22 (0.20 - 0.24) AC 31.1 cm 35w1d (41q8e-87a0z) Hadl AC 35% HC/AC 1.00 (0.92 - 1.11) FL 7.0 cm 35w6d (49d9k-30v6y) Hadl FL 46% CI 0.79 (0.70 - 0.86) GA for sonogram 35w2d (35c3v-29w7t) Weight Estimate: based on (BPD,HC,AC,FL) Avg Weight: 2635 gm (1134-5421) Hadlo : 5lbs, 12oz Normal: 2835 gm (0122-4830) Hadlo Wt% 33% for 36w1d Heart Rate: 139 bpm Amniotic Fluid Index: 14.4cm (07.7-24.9) Q1: 7.5cm Q3: 3.9cm Q4: 2.9cm CLINICAL SUMMARY Study Number: 7 A single fetus is identified in cephalic presentation. The measurements today are consistent with appropriate growth. The HÉCTOR selected is based on a prior ultrasound(confirmed). The estimated weight is at the 33%. The amniotic fluid volume is within normal limits. The placenta is posterior. The patient was advised that ultrasound does not allow detection of all structural or chromosomal abnormalities. IMPRESSION: Single, live vertex IUP at 36w1d Normal amniotic fluid volume Appropriate growth AGA status Placental location: Posterior No major malformations are seen today within the limitations of ultrasound Completed anatomy survey RECOMMEND: Follow up ultrasound patient is getting her BPP/NST at outside facitliy.. Thank you for allowing us the opportunity to care for your patient. Kuldip Hopkins MD <Electronic Signature> 08/23/2016 04:07pm Flo Vidal MD [facility] ORDERABLES * ECHO CONSULT - (06/20/2016 11:49 AM CDT) 06/20/2016 11:4 9 AM CDT Narrative Procedure Note Anastasiia Willis MD - 06/20/2016 [facility] [place] [address] Fax Echocardiogram Report Pat.Name: ART OJEDA Pat.ID: [id number] .Date: 06/20/2016 Exam Time: 11:49:00 AM Study Type: Echo Age: 2 1980,36Y Sex: FEMALE Sonogrphr: Mai Jay RDCS Pat. Stat.:Outpatient CPT - 4: [id number], [id number], [id number], [id number] Reason for Study:Gestational diabetes History / Clinical: Procedures: 2D Complete, Doppler Complete, Color Flow Visit ID: [id number] SUMMARY: Study Data: GA: 27w0d weeks. HÉCTOR: 09/19/2016 . : 2. Para: 1. Type: [place]. Lie: Vertex. Impression: The echocardiogram was within normal limits; however small atrial and ventricular septal defects and persistent ductus arteriosus cannot be excluded as findings. Findings: Anatomic Relationships: Left sided cardiac apex (levocardia). There is normal visceral-cardiac situs, and normal segmental cardiac anatomical relationship. Systemic Veins: There is normal systemic venous return. Pulmonary Veins: The visualized pulmonary veins drain normally to the left atrium. Right Atrium: The right atrial size is normal. Left Atrium: The left atrial size is normal. Atrial Septum: Patent foramen ovale is seen with the foramen flap bowing from right to left and color flow is right to left. Tricuspid Valve: The tricuspid valve is structurally normal. The inflow pattern is normal. Tricuspid velocity is within the normal range. There is no regurgitation present. Mitral Valve: The mitral valve is structurally normal. The inflow pattern is normal. Mitral velocity is within the normal range. There is no regurgitation present. Right Ventricle: The cavity size is normal. The wall thickness is normal. The systolic function is normal. RV Outflow Tract: The outflow tract is normal. Left Ventricle: The cavity size is normal. The wall thickness is normal. The systolic function is normal. LV Outflow Tract: The outflow tract is normal. Ventricular Septum: There is no defect with no shunting. Pulmonary Valve: Leaflets exhibited normal mobility. The transpulmonic velocity is within the normal range. There is no regurgitation present. Aortic Valve: Leaflets exhibited normal mobility. The transaortic velocity is within the normal range. There is no regurgitation present. Pulmonary Artery: The MPA is normal with confluent branch pulmonary arteries. Aorta: aortic arch visualized and is without obstruction by 2D, color flow and Doppler. Ductus Arteriosus: The antegrade flow velocity and pattern in the ductal arch is normal. A normal ductus arteriosus is appreciated. Hydrops Assessment: No pericardial effusion. No evidence of ascites or pleural effusion. Rhythm: The rhythm is normal. There is 1:1 AV conduction. Dopplers: Flow in the ductus venosus is normal. The umbilical vein flow pattern is normal. The umbilical artery flow pattern is normal. MEASUREMENTS: DOPPLER Mitral Valve MV pkE 0.3 m/s MV pkA 0.4 m/s Tricuspid Valve TV pkE 0.3 m/s TV pkA 0.5 m/s Aortic Valve AVpkPG 2 mmHg AVpkVel 0.7 m/s Signed 06/20/2016 04:40 PM Anastasiia Willis MD Anastasiia Willis MD ECHO ORDERABLES [facility] [address] [place] [address]
--- OUTSIDE RECORDS SUMMARY | 2024-06-12 08:32 | XMS_ITS | Referral Summary ---
Author Organization [facility] Address [address] [place] [address] Care Team Providers Care Sports Centre Manager Name Role Phone Unavailable Primary Care Provider Unavailabl e Source Comments [facility],non-owned Affiliates and Associated Physician Practices is amultiple site organization consisting of ambulatory clinics and hospital sitesin [place], [place], [place] and [place]. This disclosure is being madepursuant to the Care Everywhere program and may not contain all information available regarding this patient. Last updated 17.[facility] Allergies No known active allergies Medications * Be aware that medications may not be up to date on this document. Alwaysverify current medications with the patient. Medication Sig Dispensed Refills Start Date End Date Status Vit-Fe Fumarate-FA ( VITAMIN) 28-0.8 MG tablet Take 1 Tab by mouth once daily Active blood glucose (ONETOUCH ULTRA TEST STRIPS) test strip For glucose monitoring 8 times per day--before and one hour after each meal and bedtime and 2 to 3 am. 250 Strip 02/23/2016 Active insulin glulisine (APIDRA) vial Take 10 units with breakfast and 10 units with dinner. 10 mL 3 02/23/2016 Active Additional Information Patient taking differently: Take 28 units with breakfast, 24 before lunch, and and 26 units with dinner., Reported on 08/23/2016 insulin NPH (HUMULIN N) vial Take 20 units in the morning and 10 units at bedtime. 10 mL 3 02/23/2016 Active Additional Information Patient taking differently: 7 Units, Take 7 units at bedtime., Reported on 08/23/2016 Insulin Syringe-Needle U-100 (BD ULTRAFINE 31 G X 6 MM 0.5 ML) 31G X 15/64 0.5 ML syringe Use one syringe with each injection--for four injections per day. 200 Syringe 3 02/23/2016 Active glucagon (GLUCAGON EMERGENCY) injection Use as directed if needed for emergency. Dispense 2 kits--one for work and one for home. 2 Kit 1 02/23/2016 Active aspirin EC (ECOTRIN) 325 MG tablet Take 325 mg by mouth once daily Active Active Problems Problem Noted Date Diagnosed Date [...] cm (5' 4 ) 02/23/2016 3:57 PM GUN NUMBERER Body Mass Index 37.35 02/23/2016 3:57 PM GUN NUMBERER Plan of Treatment Not on file
--- OUTSIDE RECORDS SUMMARY | 2024-06-12 08:32 | XMS_ITS | Clinical Summary ---
Author Organization [facility] Address [address] [place] [id number] Care Team Providers Care Bolt Labeler Name Role Phone Unavailable Primary Care Provider Unavailabl e Social History Tobacco Use Types Packs/Day Years Used Date Smoking Tobacco: Never Assessed Comments Unknown Sex and Gender Information Value Date Recorded Sex Assigned at Not on file Legal Sex Female 6:48 PM CDT Gender Identity Not on file Sexual Orientation Not on file Plan of Treatment Health Maintenance Due Date Last Done Comments Cervical Cancer Screening Pa p Smear (Age 30 to 64) Every 3 Years 1980 Annual Physical 1983 Hepatitis C 1998 DTaP, Tdap and Td Vaccines ( 1 - Tdap) 1999 Hepatitis B Vaccines (1 of 3 - 19+ 3-dose series) 1999 Cervical Cancer Screening Pa p with HPV Testing (Age 30 to 64) Every 5 Years 2010 Cervical Cancer Screening with HPV 2010 Mammogram Screening 2020 COVID-19 Vaccine ( - 2023-2 5 season) 2023 Influenza Adult (#1) 2024 HPV Vaccines Aged Out No longer eligi ble based on patient's age to complete this topic Meningococcal B Vaccine Aged Out No l onger eligible based on patient's age to complete this topic Meningococcal Vaccine Aged Out No cali harriet eligible based on patient's age to complete this topic Pneumococcal Vaccine: Pediat rics (0 to 5 Years) and At-Risk Patients (6 to 64 Years) Aged Out No longer eligible b ased on patient's age to complete this topic RSV Immunizations Under 20 Months Aged Out No longer eligible based on patient's age to complete this topic
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
--- OUTSIDE RECORDS SUMMARY | 2024-06-12 08:32 | XMS_ITS | Clinical Summary ---
Author Organization [facility] [employer] Address [address] [place] [address] Care Team Providers Care Ruby On Rails Consultant Name Role Phone Unavailable Primary Care Provider Unavailabl e Source Comments [facility] [employer],non-owned Affiliates and Associated Physician Practices is amultiple site organization consisting of ambulatory clinics and hospital sitesin [place], [place], [place] and [place]. This disclosure is being madepursuant to the Care Everywhere program and may not contain all information available regarding this patient. Last updated 17.[facility] [employer] Allergies No known active allergies Medications * [...] 02/22/2016 AMA (advanced maternal age) multigravida 35+ Family History Medical History Relation Name Comments Hypertension Father Clotting Disorder Mother protein S Relation Name Status Comments Father Mother Social History Tobacco Use Types Packs/Day Years [...] cm (5' 4 ) 02/23/2016 3:57 PM [employer] Body Mass Index 37.35 02/23/2016 3:57 PM [employer] Plan of Treatment Health Maintenance Due Date Last Done Comments LIPID TESTING 1980 MAMMOGRAM 1980 HIV SCREENING 1995 HEPATITIS C SCREENING 05/17/1998 DTAP/TDAP/TD VACCINES (1 - Tdap) 1999 HEPATITIS B VACCINE (1 of 3 - 19+ 3-dose series) 1999 COVID-19 VACCINE (2023-2 5 season) 2023 INFLUENZA VACCINE (#1) 2023 DEPRESSION SCREENING 04/09/2024 ZOSTER VACCINE (1 of 2) 2030 HIB VACCINE Aged Out No longer eligi ble based on patient's age to complete this topic HPV VACCINE Aged Out No longer eligi ble based on patient's age to complete this topic MENINGOCOCCAL (Group B) VACCINE Aged Out No longer eligible based on patient's age to complete this topic MENINGOCOCCAL VACCINE Aged Out No cali harriet eligible based on patient's age to complete this topic PNEUMOCOCCAL VACCINE Aged Out No long er eligible based on patient's age to complete this topic
== END 2024-06-12 08:22 | disposition home or self-care (01) ==
PROVIDERS: PCP Physician Assistant; Visit Provider Obstetrics & Gynecology
DX: Z12.31 Encounter for screening mammogram for malignant neoplasm of breast (principal)
CPT/HCPCS: 77063; 77067

== ENCOUNTER 2024-12-04 13:35 | Outpatient (CLI) | payer SELFPAY ==
--- NOTE | ~2024-12-04 | US_ITS ---
EXAMINATION: US pelvic complete w TV INDICATION: Pelvic pain. Abnormal uterine bleeding Comparison:Pelvic pain. Abnormal uterine bleeding. TECHNIQUE: Multiple transabdominal and endovaginal sonographic images of the pelvis performed. FINDINGS: The uterus measures 9.6 x 5.2 x 5.6. There is uterine fibroid measuring 2.9 cm. The endometrial complex measures 8 mm. The right ovary measures 2.6 x 2.7 x 2.6 cm and the left ovary measures 2.8 x 2 x 1.4 cm. There are small follicles in each ovary. Normal doppler signal in both ovaries. There is no free fluid in the pelvis. There are no abnormal masses seen on either side. IMPRESSION: 1. Uterine fibroid measuring 2.9 cm. Reviewed, dictated and finalized at location O.
== END 2024-12-04 13:36 | disposition home or self-care (01) ==
PROVIDERS: PCP Obstetrics & Gynecology; Visit Provider Obstetrics & Gynecology
DX: D25.9 Leiomyoma of uterus, unspecified (principal); R10.2 Pelvic and perineal pain
CPT/HCPCS: 76830; 76856